=== PATIENT | female | born 1995 | race Hispanic/Latino ===

== ENCOUNTER → 2016-12-21 | Outpatient (REF) | payer OTHER ==
[~2016-12-21] MED LIST: ACET50TA PO; ALBU1.25 INH; ANUS2.5C2 TOP; DOCU10CA PO; LEVO25TABR PO; MOM30SS PO; MOTR200T44 PO; PRENTAB66 PO; PROG-34 PV; STUATAB PO
== END ==
LOC: M LAB REF 17:11
PROVIDERS: ATTEND Obstetrics & Gynecology
DX: Z11.3 Encounter for screening for infections with a predominantly sexual mode of transmission (principal)

== ENCOUNTER 2017-04-21 07:10 | Emergency (ER) | payer MEDICAID, OTHER, SELFPAY ==
[~2017-04-21] VITALS: Ht 165.1 cm; Wt 59.0 kg
[2017-04-21] MEDS ORDERED: GI COCKTAIL 50ML BTL(HYOSCYAMINE/MAALOX/LIDOCAINE VISCOUS)(1:3:1) PO ONE (08:15)
[2017-04-21] MEDS ORDERED: ONDANSETRON 4 MG ORAL DISINTEGRATING TAB (S0181) PO ONE (08:15)
[2017-04-21] MEDS ORDERED: KETOROLAC 60 MG/2 ML VIAL (J1885) IM ONE (08:45)
--- NOTE | 2017-04-21 08:55 | REP ---
Clinical: Abdominal pain. Technique: Two supine views of the abdomen and pelvis. Findings: Bowel gas pattern is nonspecific. No organomegaly. No abnormal calcifications. Skeletal structures intact. IUD in satisfactory position. Impression: Normal supine abdominal radiograph. Signed by Fazal Cobb MD 04/21/2017 08:46 A
[2017-04-21] MEDS ORDERED: OMEP40CA2 PO ×2 (09:18→19:29)
[2017-04-21 09:26] VITALS: BP 106/56
[2017-06-11] MEDS ORDERED: ALBU20IN (12:12)
[2017-06-18] MEDS ORDERED: NORC1TAB4 PO (09:57)
== END 2017-04-21 09:27 | disposition home or self-care (01) ==
LOC: M ED 08:41
DX: K29.00 Acute gastritis without bleeding (principal); Z97.5 Presence of (intrauterine) contraceptive device

== ENCOUNTER 2017-04-21 14:03 | Inpatient (IN) | payer OTHER, SELFPAY ==
[~2017-04-21] VITALS: Ht 165.1 cm; Wt 60.6 kg
[~2017-04-21 14:03] MED LIST changes: +OMEP40CA2 PO
[2017-04-21] MEDS ORDERED: NS 1,000 ML IV SCH (16:35)
[2017-04-21] MEDS ORDERED: ONDANSETRON 4MG/2ML VIAL (J2405) IV ONE ×2 (16:45→18:45)
[2017-04-21] MEDS ORDERED: GI COCKTAIL 50ML BTL(HYOSCYAMINE/MAALOX/LIDOCAINE VISCOUS)(1:3:1) PO ONE (16:45)
[2017-04-21 17:41] LABS: BASO % 0.2 % (0.0-1.0); EOS % 0.5 % (0.0-3.0); LARGE UNSTAINED CELL # 0.1 K/mm3 (0.0-0.4); LARGE UNSTAINED CELL % 0.9 % (0.0-4.0); LYMPH % 10.7 % (24.0-44.0); MEAN CORPUSCULAR HEMOGLOBIN 27.8 pg (27.0-33.0); MEAN CORPUSCULAR HGB CONC 32.9 g/dl (32.0-36.5); MEAN CORPUSCULAR VOLUME 84.5 fl (80.0-96.0); MONO # 0.6 K/mm3 (0.0-0.8); MONO % 6.3 % (0.0-5.0); NEUTROPHILS # 7.5 K/mm3 (1.8-7.7); NEUTROPHILS % 81.4 % (36.0-66.0); PLATELET COUNT, AUTOMATED 226 k/mm3 (150-450); WHITE BLOOD COUNT 9.2 K/mm3 (4.0-10.0)
--- NOTE | 2017-04-21 17:46 | REP ---
GALLBLADDER ULTRASOUND: REASON FOR EXAM: Epigastric pain. COMPARISON EXAM: None. Multiple ultrasonographic images of the liver show the hepatic parenchyma echo pattern to be within normal limits. There is mild intrahepatic ductal dilatation in the common bile duct is dilated measuring 8 mm. Multiple ultrasonographic images of the gallbladder show multiple echogenic foci within the gallbladder lumen which are mobile and casting acoustic shadows. The gallbladder is somewhat dilated but there is no pericholecystic edema or gallbladder wall thickening. Imaged portion of the right kidney and pancreas are within normal limits. IMPRESSION: Cholelithiasis, mildly distended gallbladder, and a dilated common bile duct. It should also be stated that the transmission and protection engineer has indicated that the patient has a sonographic Butts sign on scanning the gallbladder area. Signed by Tu Welsh DO 04/21/2017 06:52 P
[2017-04-21 17:59] LABS: CONTROL LINE HCG INT CTR LINE PRESENT
[2017-04-21 18:11] LABS: ALBUMIN 4.2 GM/DL (3.2-5.2); ALBUMIN/GLOBULIN RATIO 1.08 (1.00-1.93); ALKALINE PHOSPHATASE 119 U/L (45-117); ALT/SGPT 779 U/L (12-78); ANION GAP 8 MEQ/L (8-16); AST/SGOT 975 U/L (15-37); BILIRUBIN,TOTAL 1.5 MG/DL (0.2-1.0); BLOOD UREA NITROGEN 9 MG/DL (7-18); CALCIUM LEVEL 9.6 MG/DL (8.5-10.1); CARBON DIOXIDE LEVEL 27 MEQ/L (21-32); CHLORIDE LEVEL 105 MEQ/L (98-107); CREATININE FOR GFR 0.89 MG/DL (0.55-1.02); GLOMERULAR FILTRATION RATE > 60.0 (>60); GLUCOSE, FASTING 95 MG/DL (70-105); POTASSIUM SERUM 3.9 MEQ/L (3.5-5.1); SODIUM LEVEL 140 MEQ/L (136-145); TOTAL PROTEIN 8.1 GM/DL (6.4-8.2)
[2017-04-21] MEDS ORDERED: PERCOCET 5MG/325MG TAB PO ONE (18:45)
[2017-04-21] MEDS ORDERED: OMEP40CA2 PO (19:29)
[2017-04-21] MEDS ORDERED: MORPHINE 4 MG/ML 1ML SYRINGE IV ONE (19:30)
[2017-04-21] MEDS ORDERED: PIPERACILLIN/TAZOBACTAM SOD 3.375 GM in D5W MINI-BAG PLUS 50 ML IV ONE (19:45)
[2017-04-21] MEDS ORDERED: NORCO, ANEXSIA 5/325MG TABLET (HYDROcodone/ACETAMINOPHEN) PO PRN ×2 (20:00)
[2017-04-21] MEDS ORDERED: ACETAMINOPHEN TAB 650MG DOSE (2X325MG) PO PRN (20:00)
[2017-04-21 22:03] VITALS: BP 131/61
[2017-04-21] MEDS: LR 1,000 ML IV SCH (22:31)
[2017-04-21] MEDS: SENOKOT S TAB PO SCH ×2 (22:31→22:34)
[2017-04-21] MEDS: CIPROFLOXACIN 400 MG in APPROPRIATE DILUENT 1 EA IV SCH (23:39)
[2017-04-21] MEDS: MORPHINE 4 MG/ML 1ML SYRINGE IV PRN (23:43)
[2017-04-22] VITALS (8 sets, daily range): BP systolic 100–120; BP diastolic 52–70
[2017-04-22] MEDS: ONDANSETRON 4MG/2ML VIAL (J2405) IV PRN ×2 (00:30→06:33)
[2017-04-22] MEDS: metroNIDAZOLE 500 MG in APPROPRIATE DILUENT 1 EA IV SCH ×3 (01:40→18:00)
[2017-04-22] MEDS: MORPHINE 4 MG/ML 1ML SYRINGE IV PRN ×3 (01:46→06:24)
[2017-04-22] MEDS ORDERED: METOCLOPRAMIDE INJ 10MG/2ML VIAL (J2765) IV PRN (04:45)
[2017-04-22] MEDS: LR 1,000 ML IV SCH ×3 (06:23→21:30)
[2017-04-22 06:56] LABS: BASO % 0.3 % (0.0-1.0); EOS % 0.4 % (0.0-3.0); LARGE UNSTAINED CELL # 0.2 K/mm3 (0.0-0.4); LARGE UNSTAINED CELL % 1.5 % (0.0-4.0); LYMPH # 1.3 K/mm3 (1.5-6.5); LYMPH % 9.6 % (24.0-44.0); MEAN CORPUSCULAR HEMOGLOBIN 27.8 pg (27.0-33.0); MEAN CORPUSCULAR HGB CONC 32.4 g/dl (32.0-36.5); MEAN CORPUSCULAR VOLUME 85.8 fl (80.0-96.0); MONO # 1.3 K/mm3 (0.0-0.8); NEUTROPHILS # 8.9 K/mm3 (1.8-7.7); NEUTROPHILS % 77.3 % (36.0-66.0); PLATELET COUNT, AUTOMATED 187 k/mm3 (150-450); WHITE BLOOD COUNT 11.6 K/mm3 (4.0-10.0)
[2017-04-22 07:06] LABS: ALBUMIN 3.2 GM/DL (3.2-5.2); ALKALINE PHOSPHATASE 120 U/L (45-117); ALT/SGPT 636 U/L (12-78); ANION GAP 8 MEQ/L (8-16); AST/SGOT 442 U/L (15-37); BILIRUBIN,DIRECT 1.5 MG/DL (0.0-0.2); BLOOD UREA NITROGEN 9 MG/DL (7-18); CALCIUM LEVEL 8.3 MG/DL (8.5-10.1); CARBON DIOXIDE LEVEL 25 MEQ/L (21-32); CHLORIDE LEVEL 108 MEQ/L (98-107); CREATININE FOR GFR 0.76 MG/DL (0.55-1.02); GLOMERULAR FILTRATION RATE > 60.0 (>60); GLUCOSE, FASTING 109 MG/DL (70-105); POTASSIUM SERUM 3.7 MEQ/L (3.5-5.1); SODIUM LEVEL 141 MEQ/L (136-145); TOTAL PROTEIN 7.2 GM/DL (6.4-8.2)
[2017-04-22 07:18] LABS: BILIRUBIN,TOTAL 2.4 MG/DL (0.2-1.0)
[2017-04-22] MEDS ORDERED: KETOROLAC 30 MG/ML VIAL (J1885) IV ONE (07:45)
[2017-04-22] MEDS: SENOKOT S TAB PO SCH ×2 (07:51→21:25)
[2017-04-22] MEDS: PANTOPRAZOLE 40MG INJ (PROTONIX) (C9113) IV SCH (07:51)
[2017-04-22 07:58] LABS: AMYLASE 645 U/L (25-115)
--- NOTE | 2017-04-22 08:03 | HPEPDOC ---
General Surgery H&P Date of Admission History and Physical CHIEF COMPLAINT: abdominal pain and vomiting HISTORY OF PRESENT ILLNESS: Patient presents to the ER for the second time today with ongoing complaints of epigastric pain and discomfort associated with nausea and vomiting. She reports shes been having pain for the past two days and has worsened today. She describes her pain as sharp, stabbing, constant at the epigastric area radiating to her back. She has episodes of nausea and vomiting today. She was seen early this morning and was diagnosed with gastritis and given omeprazole. Whe she got home she continued to have abdominal pain and vomiting prompting her to return to the ED. ALLERGIES: Please see below. HOME MEDICATIONS: Please see below. PAST MEDICAL HISTORY: asthma PAST SURGICAL HISTORY: Cervical cerclage PERSONAL/SOCIAL HISTORY: Denies smoking, or recreational drug use REVIEW OF SYSTEMS: GENERAL: Denies chills, fatigue, fever, weight gain and weight loss. HEENT: Denies blurred vision and double vision. Denies ear symptoms. Denies hoarseness. NECK: Denies any neck pain. CARDIOVASCULAR: Denies chest pain and palpitations. MUSCULOSKELETAL: Denies arthralgias, back pain and thrombophlebitis. SKIN: Denies rash. NEUROLOGIC: Denies headache, stroke and transient ischemic attack. PSYCHIATRIC: Denies anxiety and depression. ENDOCRINE: Denies thyroid disease. HEMATOLOGY/ONCOLOGY: Denies any bleeding or clotting disorder. HEART: Denies any chest pains, palpitations, paroxysmal dyspnea, orthopnea. PULMONARY: Denies chronic cough, dyspnea and wheezing. GASTROINTESTINAL: Denies rectal bleeding, family history of colon cancer, constipation, diarrhea, dysphagia, heartburn and jaundice. GENITOURINARY: Denies dysuria, frequency, hematuria and nocturia. ENDOCRINE: Denies polydipsia, polyphagia, polyuria, heat or cold intolerance. INFECTIOUS: Denies any recent upper respiratory tract infection, UTI, need for use of antibiotics. NUTRITION: Reports good appetite. PHYSICAL EXAMINATION: VITAL SIGNS: Please see below. GENERAL APPEARANCE: Patient seen at bedside, [place] doubled over; appears uncomfortable HEENT: Normocephalic, atraumatic. [place] palpebral conjunctivae. Anicteric sclerae. Lips dry CHEST: No chest wall abnormalities. Normal respiratory motion/effort. Clear breath sounds to auscultation bilaterally NECK: Supple. No thyromegaly. No lymphadenopathies. LUNGS: Lung sounds are clear to auscultation bilaterally. No wheezing appreciated. HEART: No chest wall abnormalities. Heart rate and rhythm are regular with no murmurs. ABDOMEN: Abdomen is round, moderately distended, soft. Tender over the epigastric area with moderate guarding. Tympanitic to percussion. Quiet abdomen. SKIN: Warm, dry EXTREMITIES: Extremities have no deformities. No edema identified. NEUROLOGICAL: . ANCILLARIES: . LABORATORY DATA: Please see below. MICROBIOLOGY: Please see below. IMAGING:US of abdomen and pelvis shows cholelithiasis dilated CBD at 8 mm IMPRESSION AND PLAN: Abdominal pain secondary to cholelithiasis, possible choledocholithiasis with biliary obstruction, abnormally elevated LFTs. Patient is admitted under my service. I will start her on antibiotics and control her pain and nausea. I will repeat the LFTs in the morning and if continues to be elevated do MRCP vs ERCP Plan for possible cholecystectomy during the admission after: Bile duct stone has been cleared out. Vital Signs Vital Signs Date Time Temp Pulse Resp B/P (MAP) Pulse Ox O2 Delivery O2 Flow Rate FiO2 04/21/17 19:37 18 04/21/17 18:40 98.4 61 123/81 (95) 96 04/21/17 14:24 Room Air Laboratory Data Labs 24H Laboratory Tests 2 04/21/17 17:35: White Blood Count 9.2, Red Blood Count 4.75, Hemoglobin 13.2, Hematocrit 40.1, Mean Corpuscular Volume 84.5, Mean Corpuscular Hemoglobin 27.8, Mean Corpuscular Hemoglobin Concent 32.9, Red Cell Distribution Width 13.0, Platelet Count 226, Neutrophils (%) (Auto) 81.4H, Lymphocytes (%) (Auto) 10.7L, Monocytes (%) (Auto) 6.3H, Eosinophils (%) (Auto) 0.5, Basophils (%) (Auto) 0.2 , Neutrophils # (Auto) 7.5, Lymphocytes # (Auto) 1.0L, Monocytes # (Auto) 0.6, Eosinophils # (Auto) 0.0, Basophils # (Auto) 0.0, Large Unclassified Cells % 0.9 , Large Unclassified Cells # 0.1, Anion Gap 8, Glomerular Filtration Rate > 60.0 , Calcium Level 9.6, Aspartate Amino Transf (AST/SGOT) 975H, Alanine Aminotransferase (ALT/SGPT) 779H, Alkaline Phosphatase 119H, Total Bilirubin 1.5H, Direct Bilirubin 1.0H, Total Protein 8.1, Albumin 4.2, Albumin/Globulin Ratio 1.08, Lipase 270, Human Chorionic Gonadotropin, Qual NEGATIVE CBC/BMP Laboratory Tests 04/21/17 17:35 Red Blood Count 4.75, Mean Corpuscular Volume 84.5, Mean Corpuscular Hemoglobin 27.8, Mean Corpuscular Hemoglobin Concent 32.9, Red Cell Distribution Width 13.0 , Neutrophils (%) (Auto) 81.4 H, Lymphocytes (%) (Auto) 10.7 L, Monocytes (%) ( Auto) 6.3 H, Eosinophils (%) (Auto) 0.5, Basophils (%) (Auto) 0.2, Neutrophils # (Auto) 7.5, Lymphocytes # (Auto) 1.0 L, Monocytes # (Auto) 0.6, Eosinophils # (Auto) 0.0, Basophils # (Auto) 0.0 Home Medications Scheduled Omeprazole (Omeprazole) 40 Mg Cap, 40 MG PO DAILY, (Reported) Allergies Coded Allergies: No Known Allergies (Unverified , 11/20/14) ALDA QUINTANILLA MD April 21, 2017 20:03
--- NOTE | 2017-04-22 08:08 | IPNPDOC ---
Subjective General Date/Time Seen The patient was seen on 04/22/17 at 08:03. Subject Chief Complaint/History The patient is a 22-year-old female admitted for cholelithiasis, suspected common bile duct stone Patient overnight continues to have problems with abdominal pain, nausea. Wasn' t comfortable throughout the whole night despite pain medications and antinausea medication. Afebrile overnight. Current Medications Current Medications Current Medications Acetaminophen (Tylenol Tab) 650 mg Q4HP PRN PO MILD PAIN or TEMP > 101; Start 04/21/17 at 20:00; Stop 05/21/17 at 19:59 Acetaminophen/ Hydrocodone Bitart ([place], Anexsia 5/325) 1 tab Q4HP PRN PO MODERATE PAIN (PS 5-7); Start 04/21/17 at 20:00; Stop 04/28/17 at 19:59 Acetaminophen/ Hydrocodone Bitart ([place], Anexsia 5/325) 2 tab Q6HP PRN PO SEVERE PAIN (PS 8-10) Last administered on 04/22/17 04:32; Start 04/21/17 at 20 :00; Stop 04/28/17 at 19:59 Ciprofloxacin 400 mg/IV Miscellaneous Supplies 200 ml @ 200 mls/hr Q12H IV Last administered on 04/21/17 23:39; Start 04/22/17 at 00:00; Stop 04/29/17 at 00:00 Home Med (Med Rec Complete!) ASDIRECTED XX ; Start 04/21/17 at 19:30; Stop at 19:31; Status DC Lactated Ringer's 1,000 ml @ 125 mls/hr Q8H IV Last administered on 04/22/17 06:23; Start 04/21/17 at 19:53; Stop 05/21/17 at 19:52 Metoclopramide HCl (REGLAN INJection) 10 mg Q6HP PRN IV NAUSEA OR VOMITING Last administered on 04/22/17 04:47; Start 04/22/17 at 04:45; Stop 05/22/17 at 04:44 Metronidazole 500 mg/IV Miscellaneous Supplies 100 ml @ 100 mls/hr Q8H IV Last administered on 04/22/17 01:40; Start 04/22/17 at 02:00; Stop 04/29/17 at 01:59 Morphine Sulfate (Morphine Sulfate Inj) 4 mg Q2HP PRN IV SEVERE PAIN (PS 8-10) Last administered on 04/22/17 06:24; Start 04/21/17 at 20:00; Stop 04/28/17 at 19:59 Ondansetron HCl (ZOFRAN INJection) 4 mg Q6HP PRN IV NAUSEA OR VOMITING Last administered on 04/22/17 06:33; Start 04/21/17 at 20:00; Stop 05/21/17 at 19:59 Pantoprazole Sodium (Protonix) 40 mg DAILY IV Last administered on 04/22/17 07 :51; Start 04/22/17 at 09:00; Stop 05/22/17 at 08:59 Senna/Docusate Sodium (Senokot S) 1 tab BID PO ; Start 04/21/17 at 21:00; Stop 05/21/17 at 20:59 Sodium Chloride 1,000 ml @ 100 mls/hr Q10H IV Last administered on 04/21/17 16:35; Start 04/21/17 at 16:35; Stop 04/21/17 at 20:05; Status DC Allergies Coded Allergies: No Known Allergies (Unverified , 11/20/14) Objective Physical Examination Examination GENERAL APPEARANCE:Patient seen, laying in bed, awake, alert, and oriented. Appears uncomfortable. Double over on the bed. SKIN: Warm and dry. HEENT: Normocephalic, atraumatic. [place] palpebral conjunctiva, anicteric sclerae. Lips and mucosa appear dry. NECK: Supple, no thyromegaly. No obvious jugular venous distention. LUNGS: Clear to auscultation bilaterally. No wheezing appreciated. HEART: No chest wall abnormalities. Regular rate and rhythm with no murmurs appreciated. ABDOMEN: Abdomen is moderately distended, soft, tender to palpation over the epigastric area with moderate guarding. . EXTREMITIES: [no edema. Vital Signs Vital Signs Date Time Temp Pulse Resp B/P (MAP) Pulse Ox O2 Delivery O2 Flow Rate FiO2 04/22/17 06:36 16 Room Air 04/22/17 05:25 97.7 74 115/60 (78) 96 I&Os I&O- Last 24 Hours up to 6 AM 04/22/17 06:00 Intake Total 1050 ml Output Total 250 ml Balance 800 ml Laboratory Data Labs 24H Laboratory Tests 2 04/21/17 17:35: White Blood Count 9.2, Red Blood Count 4.75, Hemoglobin 13.2, Hematocrit 40.1, Mean Corpuscular Volume 84.5, Mean Corpuscular Hemoglobin 27.8, Mean Corpuscular Hemoglobin Concent 32.9, Red Cell Distribution Width 13.0, Platelet Count 226, Neutrophils (%) (Auto) 81.4H, Lymphocytes (%) (Auto) 10.7L, Monocytes (%) (Auto) 6.3H, Eosinophils (%) (Auto) 0.5, Basophils (%) (Auto) 0.2 , Neutrophils # (Auto) 7.5, Lymphocytes # (Auto) 1.0L, Monocytes # (Auto) 0.6, Eosinophils # (Auto) 0.0, Basophils # (Auto) 0.0, Large Unclassified Cells % 0.9 , Large Unclassified Cells # 0.1, Anion Gap 8, Glomerular Filtration Rate > 60.0 , Calcium Level 9.6, Aspartate Amino Transf (AST/SGOT) 975H, Alanine Aminotransferase (ALT/SGPT) 779H, Alkaline Phosphatase 119H, Total Bilirubin 1.5H, Direct Bilirubin 1.0H, Total Protein 8.1, Albumin 4.2, Albumin/Globulin Ratio 1.08, Lipase 270, Human Chorionic Gonadotropin, Qual NEGATIVE 04/22/17 06:13: White Blood Count 11.6H, Red Blood Count 4.41, Hemoglobin 12.3, Hematocrit 37.9 , Mean Corpuscular Volume 85.8, Mean Corpuscular Hemoglobin 27.8, Mean Corpuscular Hemoglobin Concent 32.4, Red Cell Distribution Width 13.0, Platelet Count 187, Neutrophils (%) (Auto) 77.3H, Lymphocytes (%) (Auto) 9.6L, Monocytes (%) (Auto) 11.0H, Eosinophils (%) (Auto) 0.4, Basophils (%) (Auto) 0.3, Neutrophils # (Auto) 8.9H, Lymphocytes # (Auto) 1.3L, Monocytes # (Auto) 1.3H, Eosinophils # (Auto) 0.0, Basophils # (Auto) 0.0, Large Unclassified Cells % 1.5 , Large Unclassified Cells # 0.2, Anion Gap 8, Glomerular Filtration Rate > 60.0 , Calcium Level 8.3L, Aspartate Amino Transf (AST/SGOT) 442H, Alanine Aminotransferase (ALT/SGPT) 636H, Alkaline Phosphatase 120H, Total Bilirubin 2.4 #H, Direct Bilirubin 1.5H, Total Protein 7.2, Albumin 3.2#, Albumin/Globulin Ratio 0.80L, Lipase 25938X, Blood Urea Nitrogen 9, Creatinine 0.76, Sodium Level 141, Potassium Level 3.7, Chloride Level 108H, Carbon Dioxide Level 25, Amylase Level 645H CBC/BMP Laboratory Tests 04/21/17 17:35 Red Blood Count 4.75, Mean Corpuscular Volume 84.5, Mean Corpuscular Hemoglobin 27.8, Mean Corpuscular Hemoglobin Concent 32.9, Red Cell Distribution Width 13.0 , Neutrophils (%) (Auto) 81.4 H, Lymphocytes (%) (Auto) 10.7 L, Monocytes (%) ( Auto) 6.3 H, Eosinophils (%) (Auto) 0.5, Basophils (%) (Auto) 0.2, Neutrophils # (Auto) 7.5, Lymphocytes # (Auto) 1.0 L, Monocytes # (Auto) 0.6, Eosinophils # (Auto) 0.0, Basophils # (Auto) 0.0 04/22/17 06:13 Red Blood Count 4.41, Mean Corpuscular Volume 85.8, Mean Corpuscular Hemoglobin 27.8, Mean Corpuscular Hemoglobin Concent 32.4, Red Cell Distribution Width 13.0 , Neutrophils (%) (Auto) 77.3 H, Lymphocytes (%) (Auto) 9.6 L, Monocytes (%) ( Auto) 11.0 H, Eosinophils (%) (Auto) 0.4, Basophils (%) (Auto) 0.3, Neutrophils # (Auto) 8.9 H, Lymphocytes # (Auto) 1.3 L, Monocytes # (Auto) 1.3 H, Eosinophils # (Auto) 0.0, Basophils # (Auto) 0.0, Calcium Level 8.3 L, Aspartate Amino Transf (AST/SGOT) 442 H, Alanine Aminotransferase (ALT/SGPT) 636 H, Alkaline Phosphatase 120 H, Total Bilirubin 2.4 #H, Direct Bilirubin 1.5 H, Total Protein 7.2, Albumin 3.2 # Impression Cholelithiasis, possible mild acute cholecystitis Suspect choledocholithiasis with continued elevation and worsening of the liver function test Gallstone pancreatitis Patient's exam shows abdominal distention as well as degree of pain more than expected for just choledocholithiasis. Repeat lipase shows elevation of the lipase consistent with gallstone pancreatitis may be some associated ileus. Her LFTs continued to rise up. Despite the pancreatitis, I think she would need an ERCP. I spoke to Dr. Saini for possible ERCP today. Continue with IV antibiotics If successful with clearance of common bile duct stone, possible cholecystectomy during this admission versus interval cholecystectomy. I think this will depend on how she does with a ERCP and how her pancreatitis resolves. Also with her degree of abdominal distention, I think laparoscopic cholecystectomy will be difficult at this time. Plan / VTE VTE Prophylaxis Ordered?: Yes (anticipating procedure today) ALDA QUINTANILLA MD April 22, 2017 08:08
[2017-04-22] MEDS: CIPROFLOXACIN 400 MG in APPROPRIATE DILUENT 1 EA IV SCH ×2 (12:11→23:05)
[2017-04-22] MEDS: KETOROLAC 30 MG/ML VIAL (J1885) IV PRN ×2 (13:56→21:49)
[2017-04-22] MEDS ORDERED: ISOVUE-300 61% 50ML VIAL (Q9967) As Ordered ONE (17:06)
[2017-04-22] MEDS ORDERED: ONDANSETRON 4MG/2ML VIAL (J2405) As Ordered ONE (18:14)
[2017-04-22] MEDS ORDERED: LIDOCAINE 2% INJ 100 MG/5 ML SYRINGE As Ordered ONE (18:14)
[2017-04-22] MEDS ORDERED: ROCURONIUM BROMIDE 50 MG/5 ML VIAL As Ordered ONE (18:14)
[2017-04-22] MEDS ORDERED: PROPOFOL 200 MG/20 ML VIAL As Ordered ONE (18:14)
[2017-04-22] MEDS ORDERED: MIDAZOLAM INJ 2 MG/2 ML VIAL (J2250) As Ordered ONE (18:14)
[2017-04-22] MEDS ORDERED: NEOSTIGMINE 1MG/ML 5 ML SYRINGE (J2710) As Ordered ONE (18:14)
[2017-04-22] MEDS ORDERED: fentaNYL 100 MCG/2 ML INJECTION (J3010) As Ordered ONE (18:14)
[2017-04-22] MEDS ORDERED: GLYCOPYRROLATE INJ 0.2 MG/ML 2 ML VIAL As Ordered ONE (18:14)
[2017-04-22] MEDS ORDERED: KETOROLAC 60 MG/2 ML VIAL (J1885) As Ordered ONE (18:14)
[2017-04-22] MEDS ORDERED: dexameTHASONE 4 MG/ML 1ML VIAL (J1100) As Ordered ONE (18:14)
--- NOTE | 2017-04-22 18:52 | ROOR ---
Patient Name: [place] Velazquez Procedure Date: 04/22/2017 5:58 PM Date of : 1995 Age: 22 Room: Main OR Gender: Female Note Status: Finalized Procedure: ERCP Indications: Biliary dilation on Ultrasound, Evaluation and possible treatment of bile duct stone(s), Elevated liver enzymes, Gallstone associated acute pancreatitis Providers: Long SAINI MD Referring MD: 2. Inpatient 2. Inpatient Requesting Provider: Medicines: General Anesthesia Complications: No immediate complications. Procedure: Pre-Anesthesia Assessment: - The heart rate, respiratory rate, oxygen saturations, blood pressure, adequacy of pulmonary ventilation, and response to care were monitored throughout the procedure. The Duodenoscope was introduced through the mouth, and advanced to the duodenum and used to inject contrast into the bile duct. Findings: The die lay out worker film was normal. The esophagus was successfully intubated under direct vision. The scope was advanced to a lacerated major papilla in the descending duodenum without detailed examination of the pharynx, larynx and associated structures, and upper GI tract. The papilla is draining bile spontaneously. The upper GI tract was grossly normal. A wire was passed into the biliary tree. The bile duct was then deeply cannulated over the guidewire. Contrast was injected. I personally interpreted the bile duct images. Ductal flow of contrast was adequate. Image quality was adequate. Contrast extended to the entire biliary tree. The main bile duct was somewhat dilated, but otherwise normal. Due to ongoing pancreatitis, I decided to protect against recurrent stone impaction/pancreatitis and One 8.5 Fr by 7 cm temporary plastic biliary stent was placed 5 cm into the common bile duct. Bile flowed through the stent. The stent was in good position. Impression: - The cholangiogram showed a moderately dilated bile duct, but was otherwise normal. - Lacerated major papilla with spontaneously draining bile is suggestive stone passage. - One temporary plastic biliary stent was placed into the common bile duct. Recommendation: - Observe patient's clinical course. - Return to endoscopist for stent removal at ERCP at appointment to be scheduled (stent removal in 4 months or less). - Return to endoscopist for stent removal at ERCP in 4 months or less. - Surgical consultation for consideration of cholecystectomy at appointment to be scheduled. Long Saini MD Long SAINI MD 04/22/2017 6:52:27 PM This report has been signed electronically. Number of Addenda: 0 Note Initiated On: 04/22/2017 5:58 PM Estimated Blood Loss: Estimated blood loss: none.
[2017-04-22] MEDS ORDERED: ONDANSETRON 4MG/2ML VIAL (J2405) IV PRN (19:00)
[2017-04-22] MEDS ORDERED: PERCOCET 5MG/325MG TAB PO PRN (19:00)
[2017-04-22] MEDS ORDERED: LR 1,000 ML IV SCH (19:00)
[2017-04-22] MEDS ORDERED: fentaNYL 100 MCG/2 ML INJECTION (J3010) IV PRN (19:00)
--- NOTE | 2017-04-22 20:27 | REP ---
Clinical: ERCP. Technique: Real time fluoroscopic imaging during ERCP examination. Findings: Ultrasound examination demonstrates cannulation of the common bile duct and subsequent contrast opacification demonstrating moderately dilated common bile duct without significant intrahepatic biliary ductal dilatation and no evidence for choledocholiths or obstructing stone. The cystic duct and gallbladder are also opacified and multiple gallstones are appreciated within the gallbladder. Contrast flows into the duodenum. Total fluoroscopic time 1 minute 16 seconds. Impression: Mildly distended common bile duct and multiple gallstones without early vehicle with or obstructing ductal stone. Signed by Fazal Cobb MD 04/22/2017 08:18 P
[2017-04-23] VITALS (7 sets, daily range): BP systolic 102–126; BP diastolic 53–69
[2017-04-23] MEDS: metroNIDAZOLE 500 MG in APPROPRIATE DILUENT 1 EA IV SCH ×2 (01:11→11:23)
[2017-04-23] MEDS: LR 1,000 ML IV SCH (06:40)
[2017-04-23] MEDS: KETOROLAC 30 MG/ML VIAL (J1885) IV PRN ×2 (06:40→13:43)
[2017-04-23 07:42] LABS: EOS # 0.1 K/mm3 (0.0-0.50); EOS % 1.8 % (0.0-3.0); LARGE UNSTAINED CELL # 0.1 K/mm3 (0.0-0.4); LARGE UNSTAINED CELL % 1.3 % (0.0-4.0); LYMPH % 12.9 % (24.0-44.0); MEAN CORPUSCULAR HEMOGLOBIN 27.8 pg (27.0-33.0); MEAN CORPUSCULAR VOLUME 84.3 fl (80.0-96.0); MONO # 0.3 K/mm3 (0.0-0.8); MONO % 4.1 % (0.0-5.0); NEUTROPHILS # 5.9 K/mm3 (1.8-7.7); NEUTROPHILS % 79.8 % (36.0-66.0); PLATELET COUNT, AUTOMATED 184 k/mm3 (150-450); WHITE BLOOD COUNT 7.4 K/mm3 (4.0-10.0)
[2017-04-23] MEDS: PANTOPRAZOLE 40MG INJ (PROTONIX) (C9113) IV SCH (07:58)
[2017-04-23] MEDS: SENOKOT S TAB PO SCH ×2 (07:58→20:19)
[2017-04-23 08:04] LABS: ALBUMIN 3.1 GM/DL (3.2-5.2); ALKALINE PHOSPHATASE 103 U/L (45-117); ALT/SGPT 367 U/L (12-78); ANION GAP 8 MEQ/L (8-16); AST/SGOT 102 U/L (15-37); BILIRUBIN,TOTAL 0.5 MG/DL (0.2-1.0); BLOOD UREA NITROGEN 6 MG/DL (7-18); CALCIUM LEVEL 8.5 MG/DL (8.5-10.1); CARBON DIOXIDE LEVEL 26 MEQ/L (21-32); CHLORIDE LEVEL 107 MEQ/L (98-107); CREATININE FOR GFR 0.64 MG/DL (0.55-1.02); GLOMERULAR FILTRATION RATE > 60.0 (>60); GLUCOSE, FASTING 97 MG/DL (70-105); POTASSIUM SERUM 3.8 MEQ/L (3.5-5.1); SODIUM LEVEL 141 MEQ/L (136-145); TOTAL PROTEIN 6.2 GM/DL (6.4-8.2)
--- NOTE | 2017-04-23 11:41 | IPNPDOC ---
Subjective General Date/Time Seen The patient was seen on 04/23/17 at 07:21. Subject Chief Complaint/History The patient is a 22-year-old female admitted with a reason for visit cholelithiasis, choledocholithiasis, gallstone pancreatitis She underwent ERCP (with Dr. Saini) last night. Stent left in place. She reports no further nausea. Still a bit uncomfortable with abdominal discomfort this morning but reports better than it was on presentation. Hast tried liquids last night. Current Medications Current Medications Current Medications Acetaminophen (Tylenol Tab) 650 mg Q4HP PRN PO MILD PAIN or TEMP > 101; Start 04/21/17 at 20:00; Stop 05/22/17 at 19:59 Acetaminophen/ Hydrocodone Bitart ([place], Anexsia 5/325) 1 tab Q4HP PRN PO MODERATE PAIN (PS 5-7); Start 04/21/17 at 20:00; Stop 04/29/17 at 19:59 Acetaminophen/ Hydrocodone Bitart ([place], Anexsia 5/325) 2 tab Q6HP PRN PO SEVERE PAIN (PS 8-10) Last administered on 04/22/17 04:32; Start 04/21/17 at 20 :00; Stop 04/29/17 at 19:59 Ciprofloxacin 400 mg/IV Miscellaneous Supplies 200 ml @ 200 mls/hr Q12H IV Last administered on 04/22/17 23:05; Start 04/22/17 at 00:00; Stop 04/29/17 at 00:00 Fentanyl Citrate (Sublimaze) 25 mcg Q5MP PRN IV MODERATE PAIN (PS 4-7); Start 04/22/17 at 19:00; Stop 04/22/17 at 20:00; Status DC Home Med (Med Rec Complete!) ASDIRECTED XX ; Start 04/21/17 at 19:30; Stop at 19:31; Status DC Ketorolac Tromethamine (ToRADol) 30 mg Q6HP PRN IV PAIN Last administered on 06:40; Start 04/22/17 at 14:00; Stop 04/27/17 at 13:58 Lactated Ringer's 1,000 ml @ 80 mls/hr [id number] IV ; Start 04/22/17 at 19:00; Stop 04/22/17 at 20:00; Status DC Lactated Ringer's 1,000 ml @ 125 mls/hr Q8H IV Last administered on 04/23/17 06:40; Start 04/21/17 at 19:53; Stop 05/22/17 at 19:52 Metoclopramide HCl (REGLAN INJection) 10 mg Q6HP PRN IV NAUSEA OR VOMITING Last administered on 04/22/17 04:47; Start 04/22/17 at 04:45; Stop 05/22/17 at 04:44 Metronidazole 500 mg/IV Miscellaneous Supplies 100 ml @ 100 mls/hr Q8H IV Last administered on 04/23/17 01:11; Start 04/22/17 at 02:00; Stop 04/29/17 at 01:59 Morphine Sulfate (Morphine Sulfate Inj) 4 mg Q2HP PRN IV SEVERE PAIN (PS 8-10) Last administered on 04/22/17 06:24; Start 04/21/17 at 20:00; Stop 04/29/17 at 19:59 Ondansetron HCl (ZOFRAN INJection) 4 mg Q4HP PRN IV NAUSEA OR VOMITING; Start 04/22/17 at 19:00; Stop 04/22/17 at 20:00; Status DC Ondansetron HCl (ZOFRAN INJection) 4 mg Q6HP PRN IV NAUSEA OR VOMITING Last administered on 04/22/17 06:33; Start 04/21/17 at 20:00; Stop 05/22/17 at 19:59 Oxycodone/ Acetaminophen (Percocet 5mg/ 325mg Tablet) 1 tab ASDIRECTED PRN PO MODERATE PAIN (PS 4-7); Start 04/22/17 at 19:00; Stop 04/22/17 at 19:50; Status DC Pantoprazole Sodium (Protonix) 40 mg DAILY IV Last administered on 04/22/17 07 :51; Start 04/22/17 at 09:00; Stop 05/22/17 at 08:59 Senna/Docusate Sodium (Senokot S) 1 tab BID PO ; Start 04/21/17 at 21:00; Stop 05/22/17 at 20:59 Sodium Chloride 1,000 ml @ 100 mls/hr Q10H IV Last administered on 5/24/17at 16:35; Start 04/21/17 at 16:35; Stop 04/21/17 at 20:05; Status DC Allergies Coded Allergies: No Known Allergies (Unverified , 11/20/14) Objective Physical Examination Examination GENERAL APPEARANCE:Patient seen, laying in bed, awake, alert, and oriented. Mildly uncomfortable, in no acute distress. SKIN: Warm and moist. HEENT: Normocephalic, atraumatic. [place] palpebral conjunctiva, anicteric sclerae. Lips and mucosa appear moist. NECK: Supple, no thyromegaly. No obvious jugular venous distention. LUNGS: Clear to auscultation bilaterally. No wheezing appreciated. HEART: No chest wall abnormalities. Regular rate and rhythm with no murmurs appreciated. ABDOMEN: Abdomen is still distended, soft, tympanitic. Tender to palpation over epigastric area with voluntary guarding. Still grimacing with palpation. No EXTREMITIES: Extremities have no deformities. No edema identified. Vital Signs Vital Signs Date Time Temp Pulse Resp B/P (MAP) Pulse Ox O2 Delivery O2 Flow Rate FiO2 04/23/17 06:05 97.8 92 18 104/53 (70) 97 Room Air I&Os I&O- Last 24 Hours up to 6 AM 04/23/17 06:00 Intake Total 3410 ml Output Total 0 ml Balance 3410 ml Laboratory Data Labs 24H Laboratory Tests 04/23/17 07:30 Red Blood Count 4.30, Mean Corpuscular Volume 84.3, Mean Corpuscular Hemoglobin 27.8, Mean Corpuscular Hemoglobin Concent 33.0, Red Cell Distribution Width 13.0 , Neutrophils (%) (Auto) 79.8 H, Lymphocytes (%) (Auto) 12.9 L, Monocytes (%) ( Auto) 4.1, Eosinophils (%) (Auto) 1.8, Basophils (%) (Auto) 0.0, Neutrophils # ( Auto) 5.9, Lymphocytes # (Auto) 1.0 L, Monocytes # (Auto) 0.3, Eosinophils # ( Auto) 0.1, Basophils # (Auto) 0.0, Calcium Level 8.5, Aspartate Amino Transf ( AST/SGOT) 102 H, Alanine Aminotransferase (ALT/SGPT) 367 H, Alkaline Phosphatase 103, Total Bilirubin 0.5 #, Total Protein 6.2 L, Albumin 3.1 L CBC/BMP Impression 1. Cholelithiasis 2. Choledocholithiasis s/p ERCP with stent placement 3. Gallstone pancreatitis 1. Will re check labs today vinny. lipase and LFTs. 2. If tolerating clears and labs better, will attempt oral feeding. 3. Due to persistent distention, pancreatitis, would hold off on lap cholecystectomy and perform it electively usually in 4 to 6 weeks. 4. If labs normalize will d/c antibiotics 5. Anticipate discharge when patient tolerating diet. Plan / VTE VTE Prophylaxis Ordered?: Yes (anticipating procedure today) ALDA QUINTANILLA MD April 23, 2017 07:28
[2017-04-24 06:00] VITALS: BP 110/59
[2017-04-24 06:25] LABS: ALBUMIN 2.9 GM/DL (3.2-5.2); ALBUMIN/GLOBULIN RATIO 0.97 (1.00-1.93); ALKALINE PHOSPHATASE 90 U/L (45-117); ALT/SGPT 251 U/L (12-78); ANION GAP 4 MEQ/L (8-16); AST/SGOT 40 U/L (15-37); BILIRUBIN,TOTAL 0.3 MG/DL (0.2-1.0); BLOOD UREA NITROGEN 7 MG/DL (7-18); CALCIUM LEVEL 8.5 MG/DL (8.5-10.1); CARBON DIOXIDE LEVEL 29 MEQ/L (21-32); CHLORIDE LEVEL 110 MEQ/L (98-107); CREATININE FOR GFR 0.64 MG/DL (0.55-1.02); GLOMERULAR FILTRATION RATE > 60.0 (>60); GLUCOSE, FASTING 92 MG/DL (70-105); POTASSIUM SERUM 3.6 MEQ/L (3.5-5.1); SODIUM LEVEL 143 MEQ/L (136-145); TOTAL PROTEIN 5.9 GM/DL (6.4-8.2)
[2017-04-24] MEDS: SENOKOT S TAB PO SCH (07:39)
[2017-04-24] MEDS: PANTOPRAZOLE 40MG INJ (PROTONIX) (C9113) IV SCH (07:53)
--- NOTE | 2017-05-11 20:17 | DSES ---
DATE OF ADMISSION: 04/21/2017 DATE OF DISCHARGE: 04/24/2017 DISCHARGE DIAGNOSES: 1. Cholelithiasis with choledocholithiasis with obstruction. 2. Post ERCP pancreatitis. 3. Gallstone pancreatitis. CONSULTANTS DURING ADMISSION: Dr. Long Saini for ERCP. PROCEDURES PERFORMED DURING THIS ADMISSION: ERCP with stent placement. DISCHARGE MEDICATIONS: - omeprazole 40 mg by mouth daily DISCHARGE INSTRUCTIONS: 1. Diet regular as tolerated. 2. Activity as tolerated. 3. Wound care not applicable. 4. Followup with me in two weeks' time to consider interval cholecystectomy. 5. Followup with Dr. Saini in 1 month for possible removal of stent. HOSPITAL COURSE: Ms. Velazquez is a 22-year-old female who has been back and forth to the emergency room (ER) with epigastric pain that got worse and worse. Ultrasound shows presence of stones and dilated common bile duct. Her initial white cell count is normal. Initial LFT shows elevation of total bilirubin to 1.5, direct fraction is 1.0, AST and ALT were likewise elevated though pancreatic enzymes were normal. The following day her symptoms worsened with severe pain epigastric. Her total bilirubin boo up to 2.4 with direct fraction of 1.5 with the lipase at 11,000. At this point I consulted gastroenterology for ERCP. ERCP was done that day. She underwent ERCP successfully. At the time of the procedure the stone seems to have passed. A stent was placed to deal with the edema from the passage of stones. Her symptoms improved and subsequently her pancreatitis gradually resolved. She was able to tolerate a regular diet. She was then discharged home when she was able to tolerate diet and instructed to followup for interval cholecystectomy.
== END 2017-04-24 09:19 | disposition home or self-care (01) ==
LOC: M ED 20:10 → M ED INP 20:29 → M MSPAV 22:04
PROVIDERS: ADMIT Surgery; ATTEND Surgery
PROC: 0FHB8DZ Insertion of Intraluminal Device into Hepatobiliary Duct, Via Natural or Artificial Opening Endoscopic (ICD-10-PCS; principal; 2017-04-22 08:34)
DX: K80.71 Calculus of gallbladder and bile duct without cholecystitis with obstruction (principal); K85.10 Biliary acute pancreatitis without necrosis or infection; Z79.899 Other long term (current) drug therapy

== ENCOUNTER → 2017-05-11 | Outpatient (CLI) | payer MEDICAID ==
[2017-05-11 13:04] LABS: ALBUMIN 4.1 GM/DL (3.2-5.2); ALBUMIN/GLOBULIN RATIO 1.14 (1.00-1.93); ALKALINE PHOSPHATASE 93 U/L (45-117); ALT/SGPT 28 U/L (12-78); AMYLASE 59 U/L (25-115); AST/SGOT 15 U/L (15-37); BILIRUBIN,DIRECT < 0.1 MG/DL (0.0-0.2); BILIRUBIN,TOTAL 0.3 MG/DL (0.2-1.0); TOTAL PROTEIN 7.7 GM/DL (6.4-8.2)
== END ==
LOC: M LAB 11:56
PROVIDERS: ATTEND Internal Medicine Gastroenterology
DX: K85.90 Acute pancreatitis without necrosis or infection, unspecified (principal)

== ENCOUNTER → 2017-06-02 | Outpatient (CLI) | payer MEDICAID, OTHER ==
[~2017-06-02] MED LIST changes: +ALBU20IN; +GASTROGRAFIN SOLUTION 30ML (Q9963) As Ordered ONE; +ISOVUE-370 76% 100ML VIAL (Q9967) As Ordered ONE; +NORC1TAB4 PO
--- NOTE | 2017-06-02 15:52 | REP ---
Clinical: Acute pancreatitis. Findings: Lung bases are clear. Visualized heart and pericardium normal. Liver, spleen, bilateral adrenal glands and kidneys are normal. The gallbladder demonstrates gallstones without acute cholecystitis. The pancreas is normal in appearance and includes a pancreatic duct stent extending from the head of the pancreas to the duodenum. The enteric system is without obstruction or acute inflammatory process. Normal terminal ileum and appendix identified in the right lower quadrant. Pelvis demonstrates normal bladder and age-appropriate uterus/adnexa. No ascites. No free air. Surrounding musculoskeletal structures are normal. Impression: Pancreatic duct stent extends from the pancreatic head to the duodenum. Cholelithiasis without CT evidence for acute cholecystitis. No peripancreatic or upper abdominal inflammatory changes appreciated. Signed by Fazal Cobb MD 06/02/2017 03:43 P
== END ==
LOC: M RAD 13:00
PROVIDERS: ATTEND Internal Medicine Gastroenterology
DX: K85.90 Acute pancreatitis without necrosis or infection, unspecified (principal); Z97.8 Presence of other specified devices; K80.20 Calculus of gallbladder without cholecystitis without obstruction
CPT/HCPCS: 74176; Q9963

== ENCOUNTER → 2017-06-18 | Day surgery (SDC) | payer OTHER ==
[~2017-06-18] VITALS: Ht 160 cm; Wt 61.2 kg
[~2017-06-18] MED LIST changes: +AMPICILLIN SOD/SULBACTAM SOD 3 GM in D5W MINI-BAG PLUS 100 ML IV ONE; +BUPIVACAINE HCL 0.25% 30 ML VIAL As Ordered ONE; +EMLA CREAM 5GM (LIDOCAINE/PRILOCAINE) As Ordered ONE; +EMLA CREAM 5GM (LIDOCAINE/PRILOCAINE) TOP PRN; -GASTROGRAFIN SOLUTION 30ML (Q9963) As Ordered ONE; +GLYCOPYRROLATE INJ 0.2 MG/ML 2 ML VIAL As Ordered ONE; -ISOVUE-370 76% 100ML VIAL (Q9967) As Ordered ONE; +KETOROLAC 30 MG/ML VIAL (J1885) IV PRN; +KETOROLAC 60 MG/2 ML VIAL (J1885) As Ordered ONE; +LIDOCAINE 1% MDV 20ML VIAL SQ PRN; +LIDOCAINE 1% SDV INJ 30 ML VIAL As Ordered ONE; +LIDOCAINE 2% INJ 100 MG/5 ML SDV (FOR ANES.) As Ordered ONE; +LR 1,000 ML IV ONE; +LR 1,000 ML IV SCH; +MIDAZOLAM INJ 2 MG/2 ML VIAL (J2250) As Ordered ONE; +NEOSTIGMINE 1MG/ML 5 ML SYRINGE (J2710) As Ordered ONE; +NORCO, ANEXSIA 5/325MG TABLET (HYDROcodone/ACETAMINOPHEN) PO PRN; +ONDANSETRON 4MG/2ML VIAL (J2405) As Ordered ONE; +ONDANSETRON 4MG/2ML VIAL (J2405) IV PRN; +PERCOCET 5MG/325MG TAB PO PRN; +PROPOFOL 200 MG/20 ML VIAL As Ordered ONE; +ROCURONIUM BROMIDE 50 MG/5 ML VIAL/SYRINGE As Ordered ONE; +dexameTHASONE 4 MG/ML 1ML VIAL (J1100) As Ordered ONE; +diazePAM 5 MG TAB As Ordered ONE; +diazePAM 5 MG TAB PO ONE; +fentaNYL 100 MCG/2 ML INJECTION (J3010) As Ordered ONE
[2017-06-18 08:12] LABS: CONTROL LINE UCG INT CTR LINE PRESENT
--- NOTE | 2017-06-18 11:20 | ROOPDOC ---
[facility] Report Of Operation Report of Operation DATE OF PROCEDURE: 06/18/17 PREPROCEDURE DIAGNOSES: history of cholelithiasis, transient choledocholithiasis , gallstone pancreatitis. POSTPROCEDURE DIAGNOSES: cholelithiasis. PROCEDURE: Laparoscopic cholecystectomy. SURGEON: Anneliese Vizcarra MD REAL ESTATE EXECUTIVE ASSISTANT: Samina Bravo MD ANESTHESIA: general. ESTIMATED BLOOD LOSS: Approximately 10 mL. COMPLICATIONS: none. REMARKS: . PROCEDURE NOTE: Patient is a helathy 22 F who came in the ER with abdominal pain secondary to transient choledocholithiasis, gallstone pancreatitis. She underwent ERCP, stent placement and clinically improved. She was subsequently discharged home and followed up with me in the clinic as well as with her heel finisher. She presents today for interval cholecystectomy. She had a CT scan of the abdomen and pelvis showing the biliary stent to be in place. Her labs shows normalization of her LFTs.. DESCRIPTION OF PROCEDURE: . Patient was given a dose Unasyn 3 g IV preoperatively for prophylaxis. She was brought to the operating room, laid supine on the table, compression boots placed for DVT prophylaxis. General endotracheal anesthesia started. Her abdomen then prepped and draped in usual sterile fashion. Surgical timeout was performed prior to starting surgery. Entry into the abdomen done through an incision above the umbilicus. A Veress needle was inserted with a controlled fashion. CO2 insufflation started to pressure 15 mmHg. Using the same incision a 5 mm Visiport was placed under direct vision laparoscope. The area underneath the insertion site was inspected and no injury found. She was then placed in steep reverse Trendelenburg. Her right side was tilted up to further expose the gallbladder. Under direct vision a 11 mm epigastric port and 25 mm working ports placed along the right subcostal line. Operative findings: Her liver is noted to be smooth in contour no nodularities or lesions found. Her gallbladder is mildly thickened, mildly distended. No acute inflammation found. The fundus of the gallbladder was grasped and the gallbladder was elevated superiorly exposing the neck of the gallbladder. The peritoneum overlying the area was opened up and dissected free both anteriorly and posteriorly to help with retraction of the gallbladder. The hepatocystic triangle was approached and dissected using a [place] and instrument. The cystic duct was identified coming off from the next gallbladder this was circumferentially dissected. The cystic artery was identified in its usual position medially behind a small lymph node of [place]. This was similarly circumferentially dissected off surrounding adipose tissue. We continued posterior dissection proximally at the next gallbladder until a critical view of safety was achieved whereby only the previously identified duct and artery coursing through the neck the gallbladder. At this point the cystic artery was clipped 4 times and divided. After again checking her anatomy and verifying that the previously identified cystic duct, this was also clipped 4 times and divided. The rest of the gallbladder was then dissected free of the gallbladder bed using Bovie cautery. There was minimal bleeding at the lateral gallbladder attachments to the liver capsule this was easily controlled with Bovie cautery. The gallbladder was then placed in an Endo Catch bag and retrieved outside through the epigastric port site. Under insufflation and inspected the clips and noted this to be in place. No further bleeding noted. No bile leakage noted. The abdomen was insufflated all ports were removed. The epigastric fascial defect repaired with 0 Vicryl in a mattress fashion. Rest of the skin incisions closed with 4-0 Monocryl in subcuticular fashion. Steri-Strips and gauze dressings were placed, the wound. Patient was informed they awakened, extubated and brought to recovery room stable ALDA VIZCARRA MD Jun 18, 2017 09:46
[2017-06-18] MEDS: fentaNYL 100 MCG/2 ML INJECTION (J3010) IV PRN ×2 (11:33→11:42)
[2017-06-18 14:20] VITALS: BP 116/68
== END | disposition home or self-care (01) ==
LOC: M SDC 07:40
PROVIDERS: ATTEND Surgery
DX: K80.10 Calculus of gallbladder with chronic cholecystitis without obstruction (principal); F32.9 Major depressive disorder, single episode, unspecified; J45.909 Unspecified asthma, uncomplicated; K21.9 Gastro-esophageal reflux disease without esophagitis; K85.10 Biliary acute pancreatitis without necrosis or infection

== ENCOUNTER → 2017-06-22 | Outpatient (REF) | payer OTHER ==
[~2017-06-22] MED LIST changes: -AMPICILLIN SOD/SULBACTAM SOD 3 GM in D5W MINI-BAG PLUS 100 ML IV ONE; -BUPIVACAINE HCL 0.25% 30 ML VIAL As Ordered ONE; -EMLA CREAM 5GM (LIDOCAINE/PRILOCAINE) As Ordered ONE; -EMLA CREAM 5GM (LIDOCAINE/PRILOCAINE) TOP PRN; -GLYCOPYRROLATE INJ 0.2 MG/ML 2 ML VIAL As Ordered ONE; -KETOROLAC 30 MG/ML VIAL (J1885) IV PRN; -KETOROLAC 60 MG/2 ML VIAL (J1885) As Ordered ONE; -LIDOCAINE 1% MDV 20ML VIAL SQ PRN; -LIDOCAINE 1% SDV INJ 30 ML VIAL As Ordered ONE; -LIDOCAINE 2% INJ 100 MG/5 ML SDV (FOR ANES.) As Ordered ONE; -LR 1,000 ML IV ONE; -LR 1,000 ML IV SCH; -MIDAZOLAM INJ 2 MG/2 ML VIAL (J2250) As Ordered ONE; -NEOSTIGMINE 1MG/ML 5 ML SYRINGE (J2710) As Ordered ONE; -NORCO, ANEXSIA 5/325MG TABLET (HYDROcodone/ACETAMINOPHEN) PO PRN; -ONDANSETRON 4MG/2ML VIAL (J2405) As Ordered ONE; -ONDANSETRON 4MG/2ML VIAL (J2405) IV PRN; -PERCOCET 5MG/325MG TAB PO PRN; -PROPOFOL 200 MG/20 ML VIAL As Ordered ONE; -ROCURONIUM BROMIDE 50 MG/5 ML VIAL/SYRINGE As Ordered ONE; -dexameTHASONE 4 MG/ML 1ML VIAL (J1100) As Ordered ONE; -diazePAM 5 MG TAB As Ordered ONE; -diazePAM 5 MG TAB PO ONE; -fentaNYL 100 MCG/2 ML INJECTION (J3010) As Ordered ONE
== END ==
LOC: M LAB REF 17:10
PROVIDERS: ATTEND Obstetrics & Gynecology
DX: Z11.3 Encounter for screening for infections with a predominantly sexual mode of transmission (principal)

== ENCOUNTER 2017-08-25 07:15 | Day surgery (SDC) | payer OTHER ==
[~2017-08-25] VITALS: Ht 162.6 cm; Wt 56.7 kg
[2017-08-25] MEDS ORDERED: LR 1,000 ML IV ONE (07:30)
[2017-08-25] MEDS ORDERED: ONDANSETRON 4MG/2ML VIAL (J2405) As Ordered ONE (07:43)
[2017-08-25] MEDS ORDERED: SUCCINYLCHOLINE 100 MG/5 ML SYRINGE (J0330) As Ordered ONE (07:43)
[2017-08-25] MEDS ORDERED: LIDOCAINE 2% INJ 100 MG/5 ML SDV (FOR ANES.) As Ordered ONE (07:43)
[2017-08-25] MEDS ORDERED: ROCURONIUM BROMIDE 50 MG/5 ML VIAL/SYRINGE As Ordered ONE (07:43)
[2017-08-25] MEDS ORDERED: PROPOFOL 200 MG/20 ML VIAL As Ordered ONE (07:43)
[2017-08-25] MEDS ORDERED: fentaNYL 100 MCG/2 ML INJECTION (J3010) As Ordered ONE ×2 (07:44→10:01)
[2017-08-25] MEDS ORDERED: MIDAZOLAM INJ 2 MG/2 ML VIAL (J2250) As Ordered ONE (07:44)
[2017-08-25] MEDS ORDERED: EMLA CREAM 5GM (LIDOCAINE/PRILOCAINE) As Ordered ONE (07:58)
[2017-08-25 08:03] LABS: CONTROL LINE UCG INT CTR LINE PRESENT
[2017-08-25] MEDS ORDERED: ISOVUE-300 61% 50ML VIAL (Q9967) As Ordered ONE (08:10)
[2017-08-25] MEDS ORDERED: EMLA CREAM 5GM (LIDOCAINE/PRILOCAINE) TOP PRN (09:00)
--- NOTE | 2017-08-25 09:39 | ROOR ---
Patient Name: [place] Smith Procedure Date: 08/25/2017 8:23 AM Date of : 1995 Age: 22 Room: [facility] Gender: Female Note Status: Finalized Procedure: ERCP Indications: Acute pancreatitis suspected due to gallstone, Biliary stent removal, Prior bile duct stent placement Providers: Long SAINI MD Referring MD: 1. No Referring Physician 1. No Referring Physician, Admin. Requesting Provider: Medicines: General Anesthesia Complications: No immediate complications. Procedure: Pre-Anesthesia Assessment: - The heart rate, respiratory rate, oxygen saturations, blood pressure, adequacy of pulmonary ventilation, and response to care were monitored throughout the procedure. The Duodenoscope was introduced through the mouth, and advanced to the duodenum and used to inject contrast into the bile duct. The ERCP was accomplished without difficulty. The patient tolerated the procedure well. Findings: A biliary stent was visible on the church official film. The esophagus was successfully intubated under direct vision without detailed examination of the pharynx, larynx, and associated structures, and upper GI tract. The upper GI tract was grossly normal. One stent originating in the biliary tree was emerging from the major papilla. One stent was removed from the biliary tree using a snare. The major papilla was normal. A wire was passed into the biliary tree. The bile duct was then deeply cannulated over the guidewire. Contrast was injected. I personally interpreted the bile duct images. Ductal flow of contrast was adequate. Image quality was adequate. Contrast extended to the entire biliary tree. Opacification of the entire biliary tree except for the gallbladder was successful. The maximum diameter of the ducts was 7 mm. The middle third of the main bile duct contained filling defect(s). Choledocholithiasis was found in a nondilated duct. A 7 mm dorsal pancreatic sphincterotomy was made with a monofilament traction (standard) sphincterotome using ERBE electrocautery. There was no post-sphincterotomy bleeding. To discover objects, the biliary tree was swept with an 8 mm balloon starting at the bifurcation. Debris was swept from the duct. The ventral pancreatic duct was deeply cannulated. Contrast was injected. One 5 Fr by 3 cm temporary stent with a 3/4 external pigtail and no internal flaps was placed into the ventral pancreatic duct. Clear fluid flowed through the stent. The stent was in good position. Impression: - One stent from the biliary tree was seen in the major papilla. This stent was removed from the biliary tree. - A filling defect was seen on the cholangiogram. - A biliary sphincterotomy was performed. - The biliary tree was swept and debris was found. - One temporary stent was placed into the ventral pancreatic duct. Recommendation: - I anticipate no further need for intervention. - Confirm spontaneous stent passage by performing a KUB x-ray in 2 weeks. - My office will call you in the next few days to schedule an abdominal Xray, to confirm strent passage. Long Saini MD Long SAINI MD 08/25/2017 9:39:28 AM This report has been signed electronically. Number of Addenda: 0 Note Initiated On: 08/25/2017 8:23 AM Estimated Blood Loss: Estimated blood loss: none.
[2017-08-25] MEDS ORDERED: ONDANSETRON 4MG/2ML VIAL (J2405) IV PRN (10:00)
[2017-08-25] MEDS ORDERED: LR 1,000 ML IV SCH (10:00)
[2017-08-25] MEDS ORDERED: PERCOCET 5MG/325MG TAB PO PRN (10:00)
[2017-08-25] MEDS: fentaNYL 100 MCG/2 ML INJECTION (J3010) IV PRN ×4 (10:05→10:53)
--- NOTE | 2017-08-25 10:13 | REP ---
C-ARM VIEWS DURING ERCP: Multiple C-arm views are performed. Endoscope is visualized and the common bile duct is cannulated. Contrast is injected. Common bile duct appears mildly dilated. Catheter manipulation is performed. 5 minutes fluoroscopy time utilized. Signed by Chet Phillips MD 08/25/2017 05:02 P
[2017-08-25 12:20] VITALS: BP 122/60
== END 2017-08-25 12:49 | disposition home or self-care (01) ==
LOC: M SDC 07:15
PROVIDERS: ATTEND Internal Medicine Gastroenterology
DX: K22.70 Barrett's esophagus without dysplasia (principal); J45.909 Unspecified asthma, uncomplicated; K21.9 Gastro-esophageal reflux disease without esophagitis; R51 Headache; Z87.891 Personal history of nicotine dependence
CPT/HCPCS: 43270; 74330; 84703; C2625

== ENCOUNTER 2018-03-16 11:46 | Emergency (ER) | payer OTHER ==
[2018-03-16 14:01] LABS: KETONE, URINE AUTO RFX NEGATIVE (NEGATIVE); LEUKOCYTE ESTERASE UR AUTO RFX NEGATIVE (NEGATIVE); MUCUS, URINE RFX SMALL (NEGATIVE); NITRITE, URINE AUTO RFX NEGATIVE (NEGATIVE); RBC, URINE AUTO RFX 5 /HPF (0-3); SPECIFIC GRAVITY UR AUTO RFX 1.026 (1.002-1.035); SQUAM EPITHELIAL CELL UR AURFX 0 /HPF (0-6); WBC, URINE AUTO RFX 2 /HPF (0-3)
== END 2018-03-16 14:09 | disposition left against medical advice (07) ==
LOC: M ED 11:46
DX: R11.2 Nausea with vomiting, unspecified (principal); R06.02 Shortness of breath; J45.909 Unspecified asthma, uncomplicated; Z87.19 Personal history of other diseases of the digestive system; Z86.69 Personal history of other diseases of the nervous system and sense organs; Z98.890 Other specified postprocedural states
CPT/HCPCS: 81001

== ENCOUNTER 2018-04-23 07:42 | Emergency (ER) | payer OTHER ==
[2018-04-23] MEDS: NS 1,000 ML IV (08:15)
[2018-04-23 08:21] LABS: BASO % 0.4 % (0.0-1.0); EOS # 0.2 10^3/uL (0.0-0.50); EOS % 3.2 % (0.0-3.0); HEMATOCRIT 40.5 % (36.0-47.0); HEMOGLOBIN 13.1 g/dl (12.0-15.5); IMMATURE GRANULOCYTE % 0.1 % (0-3.0); LYMPH # 2.9 10^3/uL (1.5-6.5); LYMPH % 37.9 % (24.0-44.0); MEAN CORPUSCULAR HEMOGLOBIN 27.3 pg (27.0-33.0); MEAN CORPUSCULAR HGB CONC 32.3 g/dl (32.0-36.5); MEAN CORPUSCULAR VOLUME 84.6 fl (80.0-96.0); MONO # 0.8 10^3/uL (0.0-0.8); MONO % 10.5 % (0.0-5.0); NEUTROPHILS # 3.6 10^3/uL (1.8-7.7); NEUTROPHILS % 47.9 % (36.0-66.0); PLATELET COUNT, AUTOMATED 229 10^3/uL (150-450); RED BLOOD COUNT 4.79 10^6/uL (4.00-5.40); WHITE BLOOD COUNT 7.6 10^3/uL (4.0-10.0)
[2018-04-23 08:52] LABS: HCG, SERUM QUANTITATIVE 13 MIU/ML
[2018-04-23 09:48] LABS: KETONE, URINE AUTO RFX NEGATIVE (NEGATIVE); LEUKOCYTE ESTERASE UR AUTO RFX NEGATIVE (NEGATIVE); MUCUS, URINE RFX SMALL (NEGATIVE); NITRITE, URINE AUTO RFX NEGATIVE (NEGATIVE); RBC, URINE AUTO RFX 1 /HPF (0-3); SPECIFIC GRAVITY UR AUTO RFX 1.009 (1.002-1.035); SQUAM EPITHELIAL CELL UR AURFX 1 /HPF (0-6); WBC, URINE AUTO RFX 2 /HPF (0-3)
== END 2018-04-23 11:00 | disposition home or self-care (01) ==
LOC: M ED 07:42
DX: O20.0 Threatened abortion (principal); O99.511 Diseases of the respiratory system complicating pregnancy, first trimester; J45.909 Unspecified asthma, uncomplicated; O99.341 Other mental disorders complicating pregnancy, first trimester; F33.9 Major depressive disorder, recurrent, unspecified; Z3A.00 Weeks of gestation of pregnancy not specified
CPT/HCPCS: 76801

== ENCOUNTER → 2018-04-25 | Outpatient (CLI) | payer OTHER ==
[2018-04-25 15:53] LABS: HCG, SERUM QUANTITATIVE 3 MIU/ML
== END ==
LOC: M LAB 14:02
DX: O20.0 Threatened abortion (principal)
CPT/HCPCS: 84702

== ENCOUNTER → 2018-06-21 | Outpatient (CLI) | payer MEDICAID, SELFPAY, OTHER ==
[2018-06-21 12:36] LABS: HCG, SERUM QUANTITATIVE 1148 MIU/ML
== END ==
LOC: M LAB 11:14
DX: Z32.01 Encounter for pregnancy test, result positive (principal)
CPT/HCPCS: 84702

== ENCOUNTER → 2018-06-23 | Outpatient (CLI) | payer MEDICAID, SELFPAY ==
[2018-06-24 08:27] LABS: HCG, SERUM QUANTITATIVE 3448 MIU/ML
== END ==
LOC: M LAB 11:06
DX: Z32.01 Encounter for pregnancy test, result positive (principal)
CPT/HCPCS: 84702

== ENCOUNTER → 2018-07-19 | Outpatient (CLI) | payer MEDICAID ==
[2018-07-19 15:32] LABS: BASO % 0.3 % (0.0-1.0); EOS # 0.1 10^3/uL (0.0-0.50); EOS % 1.3 % (0.0-3.0); HEMATOCRIT 38.2 % (36.0-47.0); HEMOGLOBIN 12.6 g/dl (12.0-15.5); IMMATURE GRANULOCYTE % 0.4 % (0-3.0); LYMPH % 18.3 % (24.0-44.0); MEAN CORPUSCULAR HEMOGLOBIN 27.4 pg (27.0-33.0); MONO # 1.1 10^3/uL (0.0-0.8); MONO % 9.6 % (0.0-5.0); NEUTROPHILS # 7.8 10^3/uL (1.8-7.7); NEUTROPHILS % 70.1 % (36.0-66.0); PLATELET COUNT, AUTOMATED 208 10^3/uL (150-450); RED CELL DISTRIBUTION WIDTH 13.1 % (11.5-14.5); WHITE BLOOD COUNT 11.1 10^3/uL (4.0-10.0)
[2018-07-19 17:57] LABS: CHLAMYDIA DNA AMPLIFICATION NEGATIVE (NEGATIVE); GC DNA AMPLIFICATION NEGATIVE (NEGATIVE)
[2018-07-20 09:15] LABS: RUBELLA IgG QUALITATIVE IMMUNE (IMMUNE)
[2018-07-20 09:19] LABS: HBsAg Prenatal NEGATIVE (NEGATIVE)
[2018-07-20 09:43] LABS: HEPATITIS C VIRUS ABY INDEX 0.1 INDEX (<0.8)
[2018-07-20 09:44] LABS: HIV 1&2 SCREEN CENTAUR NEGATIVE (NEGATIVE)
== END ==
LOC: M LAB 14:37
DX: Z34.81 Encounter for supervision of other normal pregnancy, first trimester (principal); Z3A.08 8 weeks gestation of pregnancy
CPT/HCPCS: 86762

== ENCOUNTER 2018-09-14 12:55 | Emergency (ER) | payer OTHER | END 2018-09-14 14:02 | disposition left against medical advice (07) | LOC: M ED 12:55 | DX: Z53.21 Procedure and treatment not carried out due to patient leaving prior to being seen by health care provider (principal) ==

== ENCOUNTER → 2018-09-29 | Outpatient (CLI) | payer OTHER | LOC: M SMT 13:55 | DX: O09.212 Supervision of pregnancy with history of pre-term labor, second trimester (principal); Z3A.19 19 weeks gestation of pregnancy | CPT/HCPCS: 76811 ==

== ENCOUNTER → 2018-10-03 | Outpatient (REF) | payer OTHER | LOC: M LAB REF 13:24 | DX: O09.212 Supervision of pregnancy with history of pre-term labor, second trimester (principal) ==

== ENCOUNTER → 2018-11-11 | Outpatient (CLI) | payer OTHER ==
[~2018-11-11] MED LIST changes: -ACET50TA PO; +ASPI1TAB15 PO; +MAPA500T17 PO; +PRENTAB55 PO
--- NOTE | 2018-11-11 12:30 | REP ---
OBSTETRIC SONOGRAPHY: HISTORY: 26 weeks gestation: Followup anatomy. Supervision of . FINDINGS: Scanning through the gravid uterus demonstrates a viable single intrauterine gestation in a cephalic lie. motion is observed, and heart rate is recorded at 136 beats per minute. An anterior grade 1 placenta is seen without evidence of previa or abruption. Amniotic fluid is subjectively normal. Closed cervical length is measured transvaginally and transabdominally at 2.9 cm. No extrauterine abnormalities observed. There has been appropriate interval growth. No anomaly is seen. The following anatomic structures are identified today and felt to be unremarkable: cranium, choroid plexus, cavum, cerebellum and posterior fossa, face and profile, lungs, four-chamber heart, left and right ventricular outflow tract views, diaphragm, left-sided stomach, abdominal wall cord insertion, three-vessel umbilical cord, kidneys and bladder, spine, upper and lower extremities. BIOMETRY CHART: BPD 6.4 cm = 25 weeks 6 days Head circumference 23.5 cm = 25 weeks 4 days Abdominal circumference 21.5 cm = 26 weeks 0 days Femur length 4.8 cm = 26 weeks 1 day Humeral length 4.4 cm = 26 weeks 1 day Cerebellar diameter 2.8 cm = 24 weeks 6 days HC/AC ratio normal 1.09 Cephalic index normal 0.76 Estimated weight 881 grams, 1 pound 15 ounces, 68th percentile for 25 weeks 1 day. IMPRESSION: Viable single intrauterine gestation at 25 weeks 4 days by today's composite sonographic criteria. Expected gestational age estimate based on prior sonography is 25 weeks 1 day. SEBASTIAN by prior sonography February 23, 2019. There has been appropriate interval growth. Closed cervical length measured transabdominally with Valsalva 2.9 cm. Electronically Signed by Marlon Soliman MD 11/11/2018 12:32 P
== END ==
LOC: M SMT 10:01
PROVIDERS: ATTEND Obstetrics & Gynecology
DX: Z34.82 Encounter for supervision of other normal pregnancy, second trimester (principal)

== ENCOUNTER → 2018-12-16 | Outpatient (CLI) | payer OTHER ==
[~2018-12-16] MED LIST changes: -MAPA500T17 PO; +MAPA500T2 PO
[2018-12-16 15:09] LABS: HEMATOCRIT 35.2 % (36.0-47.0); HEMOGLOBIN 11.7 g/dl (12.0-15.5); MEAN CORPUSCULAR HEMOGLOBIN 28.7 pg (27.0-33.0); MEAN CORPUSCULAR HGB CONC 33.2 g/dl (32.0-36.5); MEAN CORPUSCULAR VOLUME 86.3 fl (80.0-96.0); PLATELET COUNT, AUTOMATED 174 10^3/uL (150-450); RED BLOOD COUNT 4.08 10^6/uL (4.00-5.40); WHITE BLOOD COUNT 8.9 10^3/uL (4.0-10.0)
== END ==
LOC: M LAB 13:11
PROVIDERS: ATTEND Obstetrics & Gynecology
DX: Z36.89 Encounter for other specified antenatal screening (principal)

== ENCOUNTER → 2019-01-24 | Outpatient (REF) | payer OTHER | LOC: M LAB REF 17:25 | PROVIDERS: ATTEND Obstetrics & Gynecology | DX: Z34.83 Encounter for supervision of other normal pregnancy, third trimester (principal); Z3A.00 Weeks of gestation of pregnancy not specified ==

== ENCOUNTER 2019-02-04 18:56 | Outpatient (CLI) | payer OTHER ==
[~2019-02-04] VITALS: Ht 162.6 cm; Wt 75.7 kg
[2019-02-04 19:24] VITALS: BP 131/80
[2019-02-04 19:54] VITALS: BP 138/63
== END 2019-02-04 20:00 | disposition home or self-care (01) ==
LOC: M LDO 18:56
PROVIDERS: ATTEND Specialist
DX: O36.8130 Decreased fetal movements, third trimester, not applicable or unspecified (principal); Z3A.37 37 weeks gestation of pregnancy

== ENCOUNTER 2019-02-14 12:24 | Inpatient (IN) | payer OTHER ==
[2019-02-14] VITALS (22 sets, daily range): BP systolic 112–191; BP diastolic 53–91
[~2019-02-14] VITALS: Ht 162.6 cm; Wt 76.6 kg
[2019-02-14 14:38] LABS: HEMOGLOBIN 12.8 g/dl (12.0-15.5); MEAN CORPUSCULAR HEMOGLOBIN 27.7 pg (27.0-33.0); MEAN CORPUSCULAR HGB CONC 32.8 g/dl (32.0-36.5); MEAN CORPUSCULAR VOLUME 84.4 fl (80.0-96.0); PLATELET COUNT, AUTOMATED 168 10^3/uL (150-450); RED BLOOD COUNT 4.62 10^6/uL (4.00-5.40); WHITE BLOOD COUNT 9.8 10^3/uL (4.0-10.0)
[2019-02-14] MEDS ORDERED: miSOPROStol 50 MCG 1/2 TAB (S0191) PO SCH (15:00)
--- NOTE | 2019-02-14 17:38 | HPE ---
DATE OF ADMISSION: 02/14/2019 REASON FOR ADMISSION: Induction of labor. HISTORY OF PRESENT ILLNESS: This patient is a 23-year-old, 5, para 2 who presents at 39 weeks 0 days estimated gestational age by her last menstrual period and confirmed by first trimester ultrasound, here for induction of labor. Her course was initiated in the first trimester and was appropriate throughout. She received [place] injections for history of delivery as well as cervical length measurements in the second trimester, otherwise unremarkable course. PAST MEDICAL HISTORY: None. PAST SURGICAL HISTORY: None. PAST OBSTETRICAL HISTORY: She is a 5, para 2. She has had a 23 week delivery which was complicated by cervical insufficiency. She had emergent cerclage placed and this was followed by PPROM approximately 10 days later. She had a term delivery which was uncomplicated at 39 weeks. She is proven to 6 pounds 3 ounces. She has had two miscarriages. MEDICATIONS: Includes vitamins and was receiving [place] up until 36 weeks. ALLERGIES: She has no known drug allergies. PHYSICAL EXAMINATION: Vital signs: Stable. She is afebrile. General appearance: Well appearing, no acute distress. Lungs: Clear to auscultation bilaterally. Cardiovascular: Heart regular rate and rhythm. Systolic murmur appreciated. Abdomen is gravid, nontender. Estimated weight (EFW) 3500 grams. Cervical exam: She is 1 cm dilated, 75% effaced, -2 station. LABORATORIES: Blood type B+, antibody screen is negative. Rubella is immune. RPR is nonreactive. Hepatitis surface antigen is negative. HIV is negative. Hepatitis C is nonreactive. Chlamydia and gonorrhea screens are negative. She had a normal 1-hour Glucola and she is GBS negative. ASSESSMENT: 1. This patient is a 23-year-old, 5, para 2 at 39 weeks 0 days gestational age here for induction of labor. 2. Reassuring status. PLAN: 1. Admit to labor and delivery, CBC, RPR, type and screen. 2. Patient has been thoroughly counseled in regards to induction of labor. I discussed medications as well as procedures performed in labor and delivery. She has also been verbally consented for emergency surgery, blood products, and anesthesia and desires to proceed with admission. Will also initiate her induction with oral misoprostol.
[2019-02-14] MEDS ORDERED: LR 1,000 ML IV ONE (19:00)
[2019-02-14] MEDS ORDERED: FENTANYL 2MCG/ML ROPIVACAINE 0.2% IN 0.9% NACL 100ML IVBAG As Ordered ONE (19:33)
[2019-02-14] MEDS ORDERED: EPIDURAL/PCA KEYS XX PRN (22:10)
[2019-02-14] MEDS ORDERED: NALOXONE INJ 0.4 MG/1 ML VIAL (J2310) IV PRN (22:10)
[2019-02-14] MEDS ORDERED: EPIDURAL COMMENT XX SCH (22:10)
[2019-02-14] MEDS ORDERED: ePHEDrine SULFATE 25 MG/5 ML(5MG/ML) SYRINGE IV PRN (22:10)
[2019-02-14] MEDS ORDERED: REFRIGERATOR IV KEYS XX PRN (22:10)
[2019-02-14] MEDS ORDERED: ONDANSETRON 4MG/2ML VIAL (J2405) IV PRN (22:10)
[2019-02-14] MEDS ORDERED: FENTANYL/ROPIVACAINE/NACL BAG 100 ML EPIDURAL SCH (22:10)
[2019-02-14] MEDS ORDERED: LACTATED RINGER'S 1000 ML IV PRN (22:10)
[2019-02-14] MEDS ORDERED: diphenhydrAMINE INJ 50MG/ML VIAL (J1200) IV PRN (22:10)
[2019-02-14] MEDS ORDERED: OXYTOCIN 30 UNITS IN 0.9% NaCl 500ML IV BAG (J2590) As Ordered ONE (22:56)
[2019-02-14] MEDS ORDERED: OXYTOCIN DRIP 30 UNITS in APPROPRIATE DILUENT 1 EA IV SCH (23:57)
[2019-02-15] MEDS ORDERED: DOCUSATE SODIUM 100 MG CAP PO PRN
[2019-02-15] MEDS ORDERED: DIBUCAINE 1% OINTMENT 30GM TOP PRN
[2019-02-15] MEDS ORDERED: METHYLERGONOVINE MALEATE 0.2 MG TAB PO PRN
[2019-02-15] MEDS ORDERED: MOM 30ML SUSPENSION UDC PO PRN
[2019-02-15] MEDS ORDERED: MEASLES,MUMPS,RUBELLA VACCINE INJ (MMR-II) (90707) SC SCH
[2019-02-15] MEDS ORDERED: RHOGAM 300 MCG (1500 IU) INJ (J2790) IM SCH
[2019-02-15] MEDS ORDERED: ANUSOL HC CREAM 30GM TOP PRN
[2019-02-15] MEDS: AMPICILLIN SOD/SULBACTAM SOD 3 GM in D5W MINI-BAG PLUS 100 ML IV SCH ×4 (00:58→18:47)
[2019-02-15] MEDS: IBUPROFEN 800 MG TAB PO PRN ×3 (01:17→16:55)
[2019-02-15 02:03] VITALS: BP 111/52
[2019-02-15] MEDS ORDERED: PERCOCET 5MG/325MG TAB PO ONE (05:15)
[2019-02-15] MEDS ORDERED: ACETAMINOPHEN 500 MG TAB PO PRN (05:15)
[2019-02-15 05:55] VITALS: BP 104/58
--- NOTE | 2019-02-15 07:09 | DN ---
DATE OF PROCEDURE: 02/14/2019 TIME OF : 2304 GENDER: Male. : 9 and 9. WEIGHT: 3339 grams, 7 pounds 5 ounces. ANESTHESIA: Epidural. LACERATIONS: None. ESTIMATED BLOOD LOSS: 300 mL. COUNTS: Five laparotomy sponges accounted for prior to and after delivery. COMPLICATIONS: Retained placenta requiring manual extraction. DELIVERY NOTE: On 02/14/2019 at 2304, Ms. Velazquez, a 23-year-old 5, now para 3 had a spontaneous vaginal delivery of a live born male infant, 9 and 9, weight was 7 pounds 5 ounces, 3339 grams. Head was delivered SORAYA over intact perineum followed by delivery of left anterior shoulder, right posterior shoulder and corpus. was handed to mom with a good cry. Cord was clamped times two and was cut by the father of baby. Placenta was then drained. Upon delivery of placenta, there was partial avulsion of the umbilical cord at which time I noticed there was a retained placenta which was manually extracted in one piece. Uterus was swept demonstrating no retained products on manual extraction and further sweep, and then placenta was inspected again. On reinspection of the cervix, vagina and perineum was hemostatic and intact. Mom and baby recovered in stable condition. Ms. Velazquez will receive Unasyn for 24 hours secondary to the manual extraction. The couple has decided to name their son
--- NOTE | 2019-02-15 08:07 | NUR ---
PPD#1 S: Doing well w/o complaints. + voids, +ambulation, + breast feeding. O: vss, AF gen: well appearing abd: soft, nttp, ff@U-2 ext: neg calf tenderness A/P: PPD#1 s/p , c/b retained placenta -cont routine care -d/c home tomorrow Holly Washington MD
[2019-02-15] MEDS: PRENATAL VITAMINS CHEWABLE TABLET PO SCH (09:11)
[2019-02-15] MEDS: FIORICET TAB PO PRN ×2 (16:05→22:55)
[2019-02-15 18:13] VITALS: BP 144/78
[2019-02-16] MEDS: IBUPROFEN 800 MG TAB PO PRN ×2 (01:23→09:08)
[2019-02-16 05:40] VITALS: BP 107/58
[2019-02-16] MEDS ORDERED: IBUP-1114 PO (07:10)
[2019-02-16] MEDS: FIORICET TAB PO PRN (08:37)
[2019-02-16] MEDS: PRENATAL VITAMINS CHEWABLE TABLET PO SCH (09:00)
[2019-02-16] MEDS ORDERED: CYCL5TAB PO (09:27)
[2019-02-16] MEDS ORDERED: IBUP80TA PO (09:27)
[2019-02-16] MEDS ORDERED: CYCLOBENZAPRINE 5MG TABLET PO SCH (10:00)
== END 2019-02-16 12:03 | disposition home or self-care (01) | DRG 541 ==
LOC: M LDI 12:24 → M OBS 02-15 01:37
PROVIDERS: ADMIT Obstetrics & Gynecology; ATTEND Obstetrics & Gynecology
PROC: 10E0XZZ Delivery of Products of Conception, External Approach (ICD-10-PCS; principal; 2019-02-14)
PROC: 3E0P7GC Introduction of Other Therapeutic Substance into Female Reproductive, Via Natural or Artificial Opening (ICD-10-PCS; 2019-02-14)
PROC: 10D17Z9 Manual Extraction of Products of Conception, Retained, Via Natural or Artificial Opening (ICD-10-PCS; 2019-02-14)
DX: O73.0 Retained placenta without hemorrhage (principal); Z3A.39 39 weeks gestation of pregnancy; Z37.0 Single live birth

== ENCOUNTER 2019-03-08 10:52 | Emergency (ER) | payer OTHER ==
[~2019-03-08] VITALS: Ht 162.6 cm; Wt 64.6 kg
[~2019-03-08 10:52] MED LIST changes: +CYCL5TAB PO; +IBUP-1114 PO; +IBUP80TA PO; -NORC1TAB4 PO; +NORC1TAB7 PO
[2019-03-08] MEDS ORDERED: NS 1,000 ML IV ONE (12:00)
[2019-03-08] MEDS ORDERED: ONDANSETRON 4MG/2ML VIAL (J2405) IV ONE (12:00)
[2019-03-08 12:28] LABS: BASO % 0.1 % (0.0-1.0); EOS # 0.1 10^3/uL (0.0-0.50); EOS % 0.7 % (0.0-3.0); HEMATOCRIT 52.1 % (36.0-47.0); HEMOGLOBIN 16.8 g/dl (12.0-15.5); LYMPH # 0.6 10^3/uL (1.5-6.5); LYMPH % 8.6 % (24.0-44.0); MEAN CORPUSCULAR HEMOGLOBIN 28.2 pg (27.0-33.0); MEAN CORPUSCULAR HGB CONC 32.2 g/dl (32.0-36.5); MEAN CORPUSCULAR VOLUME 87.4 fl (80.0-96.0); MONO # 0.5 10^3/uL (0.0-0.8); MONO % 6.7 % (0.0-5.0); NEUTROPHILS # 5.8 10^3/uL (1.8-7.7); NEUTROPHILS % 83.6 % (36.0-66.0); PLATELET COUNT, AUTOMATED 204 10^3/uL (150-450); RED BLOOD COUNT 5.96 10^6/uL (4.00-5.40)
[2019-03-08] MEDS ORDERED: PROMETHAZINE INJ 25 MG/ML VIAL (J2550) IV ONE (12:45)
[2019-03-08 12:53] LABS: ALBUMIN 3.8 GM/DL (3.2-5.2); ALT/SGPT 30 U/L (12-78); BILIRUBIN,DIRECT 0.1 MG/DL (0.0-0.2); BILIRUBIN,TOTAL 0.4 MG/DL (0.2-1.0); BLOOD UREA NITROGEN 12 MG/DL (7-18); CALCIUM LEVEL 9.2 MG/DL (8.5-10.1); CARBON DIOXIDE LEVEL 29 MEQ/L (21-32); CHLORIDE LEVEL 108 MEQ/L (98-107); CREATININE FOR GFR 0.84 MG/DL (0.55-1.30); GLOMERULAR FILTRATION RATE > 60.0 (>60); GLUCOSE, FASTING 91 MG/DL (70-100); LIPASE 139 U/L (73-393); SODIUM LEVEL 142 MEQ/L (136-145); TOTAL PROTEIN 8.2 GM/DL (6.4-8.2)
[2019-03-08 13:01] LABS: INFLUENZA A AMPLIFICATION NEGATIVE (NEGATIVE); INFLUENZA B AMPLIFICATION NEGATIVE (NEGATIVE)
[2019-03-08] MEDS ORDERED: ZOFR8TAB24 PO (13:34)
[2019-03-08 14:27] VITALS: BP 117/73
== END 2019-03-08 14:29 | disposition home or self-care (01) ==
LOC: M ED 10:52
DX: A08.4 Viral intestinal infection, unspecified (principal); Z87.442 Personal history of urinary calculi
CPT/HCPCS: 80048; 80076; 81001; 83690; 85025; 87631; 96361; 96374; 96375; 99284; J2405

== ENCOUNTER 2020-11-27 14:33 | Emergency (ER) | payer OTHER ==
[~2020-11-27 14:33] MED LIST changes: +ASPI-546 PO; -ASPI1TAB15 PO; -OMEP40CA2 PO; +OMEP40CA97 PO; +ZOFR8TAB24 PO
[2020-11-27 14:45] VITALS: BP 117/74
[2020-11-27] MEDS ORDERED: ALBU83IN NEB (15:38)
[2020-11-27] MEDS ORDERED: COMBIVENT RESPIMAT 100-20MCG INHALER 4GM INH ONE (15:45)
--- NOTE | 2020-11-27 16:05 | REP ---
INDICATION: DYSPNEA/COUGH COMPARISON: None. TECHNIQUE: Portable AP view of the chest FINDINGS: The mediastinum and cardiac silhouette are within normal limits for portable technique. The lung espinosa are clear without acute consolidation, effusion, or pneumothorax. Skeletal structures are intact. IMPRESSION: No acute cardiopulmonary process appreciated. <Electronically signed by Fazal Cobb > 11/27/20 [id number]
[2020-11-27 17:16] LABS: VENOUS BASE EXCESS -1.5 (-2.0-2.0); VENOUS HCO3 25.1 MEQ/L (23.0-27.0); VENOUS PARTIAL PRESSURE CO2 49.9 mmHg (38.0-50.0); VENOUS PARTIAL PRESSURE O2 32.1 mmHg (30.0-50.0); VENOUS STANDARD HCO3 22.3 MEQ/L; VENOUS TOTAL CO2 26.7 MEQ/L (24.0-28.0)
[2020-11-27 17:30] LABS: INR 0.98; PROTHROMBIN TIME 13.2 SECONDS (12.5-14.3)
[2020-11-27 17:32] LABS: D-DIMER QUANT 281.23 ng/ml (<500)
[2020-11-27 17:43] LABS: BLOOD UREA NITROGEN 9 MG/DL (7-18); CALCIUM LEVEL 9.9 MG/DL (8.5-10.1); CARBON DIOXIDE LEVEL 28 MEQ/L (21-32); CHLORIDE LEVEL 106 MEQ/L (98-107); CPK CREATINE PHOSPHOKINASE 107 U/L (26-192); CREATININE FOR GFR 0.67 MG/DL (0.55-1.30); GLOMERULAR FILTRATION RATE > 60.0 (>60); GLUCOSE, FASTING 94 MG/DL (70-100); MB/CK RELATIVE INDEX 0.93 (< OR =4); POTASSIUM SERUM 3.9 MEQ/L (3.5-5.1); SODIUM LEVEL 139 MEQ/L (136-145); TROPONIN I < 0.02 NG/ML (< 0.10)
[2020-11-27 17:50] LABS: BASO % 0.3 % (0.0-1.0); EOS # 0.1 10^3/uL (0.0-0.5); EOS % 0.5 % (0.0-3.0); HEMATOCRIT 42.4 % (36.0-47.0); HEMOGLOBIN 13.1 g/dl (12.0-15.5); LYMPH # 1.7 10^3/uL (1.5-5.0); LYMPH % 15.3 % (24.0-44.0); MEAN CORPUSCULAR HEMOGLOBIN 26.2 pg (27.0-33.0); MEAN CORPUSCULAR HGB CONC 30.9 g/dl (32.0-36.5); MEAN CORPUSCULAR VOLUME 84.8 fl (80.0-96.0); MONO # 0.9 10^3/uL (0.0-0.8); MONO % 7.9 % (0.0-5.0); NEUTROPHILS # 8.4 10^3/uL (1.5-8.5); NEUTROPHILS % 75.6 % (36.0-66.0); PLATELET COUNT, AUTOMATED 228 10^3/uL (150-450); WHITE BLOOD COUNT 11.2 10^3/uL (4.0-10.0)
[2020-11-27] MEDS ORDERED: PRED20TA PO (17:57)
== END 2020-11-27 18:30 | disposition home or self-care (01) ==
LOC: EDBD 14:33 → M ED 14:33
DX: R06.02 Shortness of breath (principal); Z20.828 Contact with and (suspected) exposure to other viral communicable diseases

== ENCOUNTER 2020-12-22 03:41 | Emergency (ER) | payer OTHER ==
[~2020-12-22] VITALS: Ht 162.6 cm; Wt 66.2 kg
[2020-12-22 03:41] VITALS: BP 138/85
[~2020-12-22 03:41] MED LIST changes: +ALBU83IN NEB; +PRED20TA PO
[2020-12-22] MEDS ORDERED: IBUP80TA PO (03:46)
[2020-12-22] MEDS ORDERED: BUPIVACAINE/EPIN 0.5% 30 ML VIAL XX STA (04:14)
[2020-12-22] MEDS ORDERED: LIDOCAINE W/EPINEPHRINE 1% 20ML VIAL As Ordered ONE (04:23)
[2020-12-22] MEDS ORDERED: AMOXICILLIN 500 MG CAP PO ONE (04:30)
[2020-12-22] MEDS ORDERED: AMOX500C PO (04:30)
== END 2020-12-22 04:43 | disposition home or self-care (01) ==
LOC: M ED 03:41
DX: K08.89 Other specified disorders of teeth and supporting structures (principal)

== ENCOUNTER → 2021-02-27 | Outpatient (CLI) | payer OTHER ==
[~2021-02-27] MED LIST changes: +AMOX500C PO
--- NOTE | 2021-02-28 04:10 | REP ---
INDICATION: SHORTNESS OF BREATH COMPARISON: 11/27/2020 TECHNIQUE: PA and lateral. FINDINGS: The mediastinum and cardiac silhouette are normal. The lung espinosa are clear and without acute consolidation, effusion, or pneumothorax. The skeletal structures are intact and normal. IMPRESSION: No acute cardiopulmonary process. <Electronically signed by Fazal Cobb > 02/28/21 [id number]
== END ==
LOC: M RAD 14:32
PROVIDERS: ATTEND Nurse Practitioner Adult Health
DX: R06.02 Shortness of breath (principal)

== ENCOUNTER → 2021-05-12 | Outpatient (CLI) | payer OTHER ==
--- NOTE | 2021-05-13 07:51 | REP ---
INDICATION: SOB COMPARISON: Chest x-ray dated 02/27/2021 TECHNIQUE: Axial noncontrast images from the thoracic inlet to the upper abdomen with coronal and sagittal reformations. This CT examination was performed using the following dose reduction techniques: Automated exposure control, adjustment of mA and/or kv according to the patient's size, and use of iterative reconstruction technique. FINDINGS: Bilateral lung espinosa are well aerated and clear. No acute consolidation, nodule or mass. No effusion. No pneumothorax. Tracheobronchial tree is patent. Mediastinum is grossly unremarkable by noncontrast evaluation. No cardiomegaly. No obvious adenopathy. Surrounding musculoskeletal structures are intact. IMPRESSION: Normal noncontrast chest CT. No acute mediastinal or pleuroparenchymal process. <Electronically signed by Fazal Cobb > 05/13/21 [id number]
== END ==
LOC: M RAD 17:02
PROVIDERS: ATTEND Internal Medicine Pulmonary Disease
DX: R06.02 Shortness of breath (principal)

== ENCOUNTER 2021-11-17 10:30 | Emergency (ER) | payer OTHER ==
[~2021-11-17] VITALS: Ht 162.6 cm; Wt 63.6 kg
[~2021-11-17 10:30] MED LIST changes: +OMEP40CA4 PO; -OMEP40CA97 PO
[2021-11-17 10:40] VITALS: BP 133/77
[2021-11-17] MEDS ORDERED: LIDVISCBTL SSP (11:53)
[2021-11-17] MEDS ORDERED: KETO10TAB PO (11:53)
[2021-11-17] MEDS ORDERED: AUGM875T28 PO (11:53)
[2021-11-17] MEDS ORDERED: LIDOCAINE VISCOUS 2% SOLN 15ML UDC SSP ONE (11:55)
[2021-11-17] MEDS ORDERED: AUGMENTIN 875 MG TAB PO ONE (11:55)
[2021-11-17] MEDS ORDERED: KETOROLAC TROMETHAMINE 10 MG TAB PO ONE (12:00)
== END 2021-11-17 12:23 | disposition home or self-care (01) ==
LOC: M ED 10:30
DX: K04.7 Periapical abscess without sinus (principal); M54.9 Dorsalgia, unspecified; F32.9 Major depressive disorder, single episode, unspecified; J45.909 Unspecified asthma, uncomplicated

== ENCOUNTER 2022-08-29 14:01 | Emergency (ER) | payer OTHER ==
[~2022-08-29] VITALS: Ht 160 cm; Wt 63.6 kg
[~2022-08-29 14:01] MED LIST changes: +ALBU2.5V10 NEB; -ALBU83IN NEB; +AUGM875T28 PO; +KETO10TAB PO; +LIDVISCBTL SSP
[2022-08-29 14:17] VITALS: BP 120/84
[2022-08-29] MEDS ORDERED: CLAR10CA3 PO (14:17)
[2022-08-29] MEDS ORDERED: FLUT1INH3 (14:17)
[2022-08-29] MEDS ORDERED: LEVA0.6322 (14:17)
[2022-08-29] MEDS ORDERED: INCR1INH (14:17)
[2022-08-29] MEDS ORDERED: MIRE1IUD IU (14:17)
[2022-08-29] MEDS ORDERED: ALBU8.5H (14:17)
[2022-08-29] MEDS ORDERED: ALLE10TA62 PO ×2 (14:27→18:25)
[2022-08-29] MEDS ORDERED: PRED20TA PO ×2 (14:27→18:25)
[2022-08-29] MEDS ORDERED: FLON1SPR NARES ×2 (14:29→18:25)
[2022-08-29 15:15] VITALS: O2SAT 99
== END 2022-08-29 15:17 | disposition home or self-care (01) ==
LOC: M ED 14:01 → EDBD 14:01 → M ED 15:17
DX: J45.909 Unspecified asthma, uncomplicated (principal); Z79.899 Other long term (current) drug therapy

== ENCOUNTER → 2023-10-06 | Outpatient (CLI) | payer OTHER ==
[~2023-10-06] MED LIST changes: -ALBU20IN; +ALBU5SOL7; +ALBU8.5H; +ALLE10TA62 PO; +CLAR10CA3 PO; +FLON1SPR NARES; +FLUT1INH3; +INCR1INH; +LEVA0.6322; +MIRE1IUD IU
== END ==
LOC: M WHC 09:03
PROVIDERS: ATTEND Obstetrics & Gynecology
DX: N60.11 Diffuse cystic mastopathy of right breast (principal); Z80.41 Family history of malignant neoplasm of ovary; R92.323 Mammographic fibroglandular density, bilateral breasts; N60.12 Diffuse cystic mastopathy of left breast; N64.52 Nipple discharge

== ENCOUNTER → 2024-09-26 | Outpatient (REF) | payer OTHER ==
[2024-09-28 15:48] LABS: HPV APTIMA Detected (Not Detected)
== END ==
LOC: M SFHCWAGY 17:58
PROVIDERS: ATTEND Obstetrics & Gynecology
DX: Z12.4 Encounter for screening for malignant neoplasm of cervix (principal); Z77.9 Other contact with and (suspected) exposures hazardous to health; R87.610 Atypical squamous cells of undetermined significance on cytologic smear of cervix (ASC-US); L85.9 Epidermal thickening, unspecified

== ENCOUNTER → 2024-11-15 | Outpatient (REF) | payer OTHER ==
[~2024-11-15] MED LIST changes: -CYCL5TAB PO; +CYCL5TAB4 PO; -LEVA0.6322; +LEVA0.6330
== END ==
LOC: M SFHCWAGY 15:00
PROVIDERS: ATTEND Obstetrics & Gynecology
DX: R87.610 Atypical squamous cells of undetermined significance on cytologic smear of cervix (ASC-US) (principal)

== ENCOUNTER → 2025-03-19 | Outpatient (CLI) | payer OTHER | LOC: M PLALAB 12:36 → MERGE 12:36 | PROVIDERS: ATTEND Obstetrics & Gynecology | DX: O03.9 Complete or unspecified spontaneous abortion without complication (principal) ==

== ENCOUNTER → 2025-03-21 | Outpatient (CLI) | payer OTHER | LOC: M PLALAB 16:38 | PROVIDERS: ATTEND Obstetrics & Gynecology | DX: O03.9 Complete or unspecified spontaneous abortion without complication (principal) ==

== ENCOUNTER → 2025-03-27 | Outpatient (REF) | payer OTHER ==
[2025-03-27 11:02] LABS: APPEARANCE, URINE HAZY (CLEAR); BACTERIA, URINE AUTO NEGATIVE (NEGATIVE); BILIRUBIN, URINE AUTO NEGATIVE (NEGATIVE); BLOOD, URINE BLOOD NEGATIVE (NEGATIVE); COLOR, URINE YELLOW (YELLOW); GLUCOSE, URINE (UA) AUTO NEGATIVE (NEGATIVE); KETONE, URINE AUTO NEGATIVE (NEGATIVE); LEUKOCYTE ESTERASE, URINE AUTO NEGATIVE (NEGATIVE); MUCUS, URINE SMALL (NEGATIVE); NITRITE, URINE AUTO NEGATIVE (NEGATIVE); PROTEIN, URINE AUTO NEGATIVE (NEGATIVE); RBC, URINE AUTO 7 /HPF (0-3); SPECIFIC GRAVITY URINE AUTO 1.017 (1.002-1.035); SQUAMOUS EPITHELIAL CELL UR AU 0 /HPF (0-6); UROBILINOGEN, URINE AUTO 0.2 mg/dL (0.0-2.0); WBC, URINE AUTO 1 /HPF (0-3)
== END ==
LOC: M PLALAB 07:08
PROVIDERS: ATTEND Obstetrics & Gynecology
DX: R30.0 Dysuria (principal)

== ENCOUNTER → 2025-08-07 | Outpatient (CLI) | payer OTHER ==
[2025-08-07 16:04] LABS: HCG, SERUM QUALITATIVE POSITIVE (NEGATIVE)
[2025-08-08 12:34] LABS: HCG, SERUM QUANTITATIVE 8912.0 MIU/ML (<4.2)
== END ==
LOC: M PLALAB 14:01
PROVIDERS: ATTEND Obstetrics & Gynecology
DX: O36.80X0 Pregnancy with inconclusive fetal viability, not applicable or unspecified (principal)

== ENCOUNTER → 2025-08-08 | Outpatient (CLI) | payer OTHER | LOC: M PLALAB 10:51 | PROVIDERS: ATTEND Obstetrics & Gynecology | DX: O36.80X0 Pregnancy with inconclusive fetal viability, not applicable or unspecified (principal); Z3A.00 Weeks of gestation of pregnancy not specified ==

== ENCOUNTER → 2025-08-10 | Outpatient (CLI) | payer OTHER | LOC: M PLALAB 09:29 | PROVIDERS: ATTEND Obstetrics & Gynecology | DX: O36.80X0 Pregnancy with inconclusive fetal viability, not applicable or unspecified (principal) ==

== ENCOUNTER → 2025-09-12 | Outpatient (CLI) | payer OTHER ==
[2025-09-12 14:11] LABS: PLATELET COUNT, AUTOMATED 220 10^3/uL (150-450)
[2025-09-12 14:45] LABS: HIV 1&2 SCREEN NEGATIVE (NEGATIVE)
[2025-09-12 14:53] LABS: HEPATITIS C VIRUS ABY INDEX < 0.02 INDEX (<0.8)
[2025-09-12 15:22] LABS: Trichomonas vaginalis (AMP) NOT DETECTED (NEGATIVE)
[2025-09-12 15:46] LABS: GC DNA AMPLIFICATION NEGATIVE (NEGATIVE)
== END ==
LOC: M PLALAB 09:37
PROVIDERS: ATTEND Obstetrics & Gynecology
DX: O26.21 Pregnancy care for patient with recurrent pregnancy loss, first trimester (principal)

== ENCOUNTER → 2025-11-26 | Outpatient (CLI) | payer OTHER | LOC: M WHC 11:43 | PROVIDERS: ATTEND Obstetrics & Gynecology | DX: Z34.92 Encounter for supervision of normal pregnancy, unspecified, second trimester (principal) ==